=== PATIENT | female | born 1965 ===

== ENCOUNTER 2025-02-20 13:17 | Outpatient (CLI) | payer MEDICARE, MEDICAID, SELFPAY ==
--- OUTSIDE RECORDS SUMMARY | 2025-02-20 14:59 | XMS_ITS ---
Care Plan - [facility] Created on: February 20, 2025 ARGENIS MONTERO : 1965 Sex: Female Author Organization [facility] Address [address] [place] [address] Phone Care Team Providers Care Card Puncher Name Role Phone BEE TIRADO MD Primary Care Provider
--- OUTSIDE RECORDS SUMMARY | 2025-02-20 14:59 | XMS_ITS | Clinical Summary ---
Author Organization [facility] Address [address] [place] [id number] Care Team Providers Care Naval Gunfire Spotter Name Role Phone Chato Tomas MD Primary Care Provider [phone] Social History Tobacco Use Types Packs/Day Years Used Date Smoking Tobacco: Never Assessed Comments Unknown Sex and Gender Information Value Date Recorded Sex Assigned at Not on file Legal Sex Female 6:17 PM CDT Gender Identity Not on file Sexual Orientation Not on file Plan of Treatment Health Maintenance Due Date Last Done Comments Cervical Cancer Screening Pa p Smear (Age 30 to 64) Every 3 Years 1965 Colorectal Cancer Screening Colonoscopy (10 Years) 1965 Annual Physical 1970 Hepatitis C 1985 DTaP, Tdap and Td Vaccines ( 1 - Tdap) 1986 Hepatitis B Vaccines (1 of 3 - 19+ 3-dose series) 1986 Cervical Cancer Screening Pa p with HPV Testing (Age 30 to 64) Every 5 Years 1997 Cervical Cancer Screening with HPV 1997 Mammogram Screening 2007 Pneumococcal Vaccine: 50+ Ye ars (1 of 1 - PCV) 2017 Zoster Vaccines (1 of 2) 2017 COVID-19 Vaccine (2023-2 5 season) 2024 Meningococcal B Vaccine Aged Out No l onger eligible based on patient's age to complete this topic Meningococcal Vaccine Aged Out No kenan lea eligible based on patient's age to complete this topic RSV Immunizations Under 20 Months Aged Out No longer eligible based on patient's age to complete this topic Insurance [facility] MEDICAID Care Teams Naval Gunfire Spotter Relationship Specialty Start Date End Date Chato Tomas MD [address] [place] [id number] PCP - General FAMILY PRACTICE 10/07/23
--- OUTSIDE RECORDS SUMMARY | 2025-02-20 14:59 | XMS_ITS | Clinical Summary ---
Author Organization [facility] Address [address] [place] [address] Phone Care Team Providers Care Risk Management Consultant Name Role Phone BEE TIRADO MD Primary Care Provider [phone] Reason for Visit and Chief Complaint The Chief Complaint is: WANTS TO DISCUSS NEW SHOES Plan of Treatment Diabetic education and instructions have been provided. We reviewed and discussed the following: - Risk categories related to pts with diabetes and foot or lower extremity complications per ADA. Adherence to medication regimen and close monitoring or blood sugar control. Daily monitoring/inspection of feet and shoes. Proper management of diet and weight Regular follow up with PCP and specialty providers as recommended Lower extremity complications related to DM were reviewed and stressed prevention. - Patient was educated on high pressure areas including risks and offloading solutions. - Reviewed with patient proper foot care instructions and daily self-examination and monitoring of the feet. - Patient was instructed to check feet daily for blisters, cuts, red spots, and swelling. - Patient instructed to use a mirror to check bottom of feet or ask a family member for help if unable check bottom of feet themselves. - Patient instructed to wash feet in warm not hot water daily. - Patient instructed to dry feet well especially between toes. - Patient instructed to apply cream on top and bottom of feet, but not in between toes. - Patient instructed to smooth corns and calluses gently with pumice stone - Patient instructed to wear shoes and socks at all times, never go barefoot. - Wear comfortable shoes that fit well and protect feet. - Patient instructed to check shoes before putting them on and taking them off each time to make sure the lining is smooth and there are no objects inside or stuck in sole. - Check socks for drainage or blood when taking them off. - Patient instructed to wear socks at night if feet get cold. - Patient instructed to elevate feet while sitting to improve blood flow. - Advised against smoking, and drinking alcohol in excess. - Patient advised to remain as active as possible and work with PCP to keep blood sugar in a safe range. - Patient counseled that they may not feel pain or injury due to loss of sensation and advised to call us right away if a cut, sore, blister, or bruise on foot does not begin to heal after one day. Patient was educated about the systemic risks of diabetes and importance of proper glucose control, dangers of neuropathy and loss of gift of pain and risk stratification and exam frequency. - Patient was educated on HgbA1c. - Rx deep wide toe box shoes with heat molded inserts to accommodate structural pathology - Pt was encouraged to call with any questions or concerns. All questions answered at today's visit. RTC in 3 Months ONYCHOMYCOSIS (FUNGUS NAIL) Clinic evidence of mycosis of the nail Positive culture complete on: Medical Evidence Documenting Podiatric Care Limitation of ambulation requiring active treatment of the foot, ambulatory patient. Non-ambulatory patient with diagnoses likely to result in significant medical complication in the absence of such treatment. Non-ambulatory patient requiring active treatment of the foot to prevent complications. 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 Absent posterior tibial (ankle) pulse 2. Advanced trophic changes: {Indicate three (minimum) trophic changes from this list} Hair growth (decrease) Nail changes (thickening) Pigmentary changes (discoloration) Skin color (rubor or redness) Skin texture (thin, shiny) 3. Absent dorsalis pedis (foot) pulse (pedal pulses) left CLASS C FINDINGS/Q9: (minimum of 2) Burning Claudication Edema Paresthesia (numbness, tingling) Temperature changes (cold feet) - Last Documented On 02/14/2024 7:56AM ; [facility] Recommended that patient proceed with custom shoes and inserts to help with a more neutral position. We may need to consider a brace however I like to start with custom shoes and inserts at this time. We discussed potential for need of walker. Patient is seeing her primary care doctor tomorrow and have asked him to discuss that with her primary care doctor. Patient will return to clinic for at risk footcare in approximately 10 weeks - Last Documented On 02/14/2024 7:56AM ; [facility] Instructions to patient Intervention and counseling on cessation of tobacco use Last Documented On 2:29PM ; [facility] Assessments Includes: Assessments from this encounter Findings - [I89.0 - Lymphedema, not elsewhere classified] Lymphedema of both lower extremities - Last Documented On 02/14/2024 7:56AM ; [facility] - [B35.1 - Tinea unguium] Onychomycosis of the toenails - Last Documented On 02/14/2024 7:56AM ; [facility] - [L84 - Corns and callosities] Foot callus - Last Documented On 02/14/2024 7:56AM ; [facility] - [M21.6X9 - Other acquired deformities of unspecified foot] Pes cavovarus - Last Documented On 02/14/2024 7:56AM ; [facility] - [M20.40 - Other hammer toe(s) (acquired), unspecified foot] Acquired hammer toes of both feet - Last Documented On 02/14/2024 7:56AM ; [facility] - [G62.89 - Other specified polyneuropathies] Distal symmetric polyneuropathy - Last Documented On 02/14/2024 7:56AM ; [facility] Instructions Includes: Instructions from this encounter Instructions to patient Intervention and counseling on cessation of tobacco use Last Documented On 2:29PM ; [facility] Medical Equipment - Implanted Devices Includes: Current Devices No Medical Equipment Recorded Medications Includes: Medications discussed during this encounter and other current Medications Current Medications (continue as prescribed) SB Bacitracin 500 UNIT/GM External Ointment 08/24/2023 Provider: Diagnosis: Last Documented On 08/24/2023 9:55AM By Bossman RUGGIERO ; [facility] Banophen 25 MG Oral Capsule 08/24/2023 Provider: Diagnosis: Last Documented On 08/24/2023 9:55AM By Bossman RUGGIERO ; [facility] Calcipotriene 0.005% External Cream 08/24/2023 Provi giancarlo: Diagnosis: Last Documented On 08/24/2023 9:56AM By Bossman RUGGIERO ; [facility] Allergy Relief (Cetirizine) 10 MG Oral Tablet 08/24/20 Provider: Diagnosis: Last Documented On 08/24/2023 9:56AM By Bossman RUGGIERO ; [facility] Clobetasol Propionate 0.05% External Cream 08/24/2023 Provider: Diagnosis: Last Documented On 08/24/2023 9:57AM By Bossman RUGGIERO ; [facility] Crestor 10 MG Oral Tablet 08/24/2023 Provider: Diagnosis: Last Documented On 08/24/2023 9:57AM By Bossman RUGGIERO ; [facility] Fish Oil 1000 MG Oral Capsule 08/24/2023 Provide r: Diagnosis: Last Documented On 08/24/2023 9:57AM By Bossman RUGGIERO ; [facility] Furosemide 20 MG Oral Tablet 08/24/2023 Provider: Diagnosis: Last Documented On 08/24/2023 9:57AM By Bossman RUGGIERO ; [facility] Curad Hydrocortisone 1% External Cream 08/24/2023 Pr ovider: Diagnosis: Last Documented On 08/24/2023 9:58AM By Bossman RUGGIERO ; [facility] hydrOXYzine HCl 25 MG Oral Tablet 08/24/2023 Provide r: Diagnosis: Last Documented On 08/24/2023 9:58AM By Bossman RUGGIERO ; [facility] Levothyroxine Sodium 50 MCG Oral Tablet 08/24/2023 P rovider: Diagnosis: Last Documented On 08/24/2023 9:59AM By Bossman RUGGIERO ; [facility] Robafen DM Cough 10-100 MG/5ML Oral Liquid 08/24/2023 Provider: Diagnosis: Last Documented On 08/24/2023 10:00AM By Bossman RUGGIERO ; [facility] Acetaminophen 325 MG Oral Capsule 08/24/2023 Provide r: Diagnosis: Last Documented On 08/24/2023 9:54AM By Bossman RUGGIERO ; [facility] Past Medications on file Amoxicillin 500 MG Oral Capsule 04/03/2024 - 04/13/2024 Provider: VOLODYMYR HUERTA Diagnosis: 1 CAPSULE TWO TIMES A DAY Last Documented On 04/03/2024 11:42AM By Volodymyr ALMANZA ; [facility] Medications Administered Includes: Administered Medications from this encounter No Administered Medications Recorded Vital Signs Includes: Vital Signs from this encounter Vital Name 02/07/2024 02:29P Blood Pressure Sitting L 152/88 BP Cuff Size Regular Pulse Rate-Sitting (bpm) 76 Respiration Rate (breaths/min) 21 Weight (lb) 255 Oxygen Saturation (%) 94 Last Documented: On 02/07/2024 2:30PM ; [facility] Results Includes: Results discussed during this encounter No Results Recorded For Specified Dates History of Present Illness Includes: History of Present Illness from this encounter KIKO MONTERO is a 58 year old female. - Allergy list reviewed - Problem list reviewed - Medication reconciliation performed - Medication list reviewed Patient is a pleasant 58 year old female here today from long-term with a manager family.Central Supply Nurse reports that she is wearing down the outsides of her shoes within a month to 2 months. They are wondering if a brace would be more helpful. Patient reports that she is unsteady on her feet and caregiver does confirm this. She currently does not use a walker but does use a cane that is pretty worn out. Social History Description Last Updated Tobacco non-user 08/24/2023 Last Documented On 4 2:28PM ; [facility] Smoking Status Unknown Procedures and Surgical History Includes: Procedures from this encounter Procedures Code Diagnosis Performing Provider Service L ocation Service Date intervention and counseling on cessation of tobacco use 4000F Last Documented On 4 2:29PM ; [facility] use of tobacco assessment performed 1000F Last Documented On 4 2:29PM ; [facility] review of medications documented 1160F Last Documented On 4 7:55AM ; [facility] encouragement to exercise Last Documented On 4 7:55AM ; [facility] Clinical summary provided to patient Last Documented On 7:55AM ; [facility] Medical History Includes: Medical History addressed during this encounter No Medical History Recorded Family History Includes: Family History addressed during this encounter No Family History Recorded Review of Systems Includes: Review of Systems from this encounter No Review of Systems Recorded Mental Status Includes: Mental Status from this encounter No Mental Status Recorded Functional Status Includes: Functional Status from this encounter No Functional Status Recorded Physical Exam Includes: Physical Exam from this encounter Allergies Includes: Active Allergies No Known Allergies Encounters Encounter Provider Location Date Check-In Time Check-Out Time Diagnosis CHECK UP NIIMSHA FRANKLIN DPM [facility] 02/07/20 24 2:11PM 2:37PM Dermatophytosis Onychomycosis Toenails,Polyneuro marbella Distal Symmetric,Acquired Deformity of Toe - Hammer Toe Bilateral,Callus Foot,Lymphedema Lower Extremity Both,Acquired Deformity of Foot Cavovarus Insurance Includes: Active Insurance Policies Plan Name Member ID Group # Subscriber Relationship Effect ajay Dates 1 - [facility]/MEDICARE ADV/AARP [id number] ARGENIS MONTERO Self 2 - MEDICAID OF [place] MEDICARE SECOND [id number] ARGENIS MONTERO Self Clinical Notes Includes: Clinical Notes from this encounter * Progress note Date Encounter Last Documented by 02/07/2024 CHECK UP Last documented on 02/14/2024; 7:56 AM, NIMISHA FRANKLIN DPM; [facility] Chief Complaint The Chief Complaint is: WANTS TO DISCUSS NEW SHOES. History of Present Illness ARGENIS MONTERO is a 58 year old female. - Allergy list reviewed - Problem list reviewed - Medication reconciliation performed - Medication list reviewed Patient is a pleasant 58 year old female here today from long-term with a manager family.Central Supply Nurse reports that she is wearing down the outsides of her shoes within a month to 2 months. They are wondering if a brace would be more helpful. Patient reports that she is unsteady on her feet and caregiver does confirm this. She currently does not use a walker but does use a cane that is pretty worn out. Current Medication - Acetaminophen 325 MG Oral Capsule 0 days, 0 refills - Allergy Relief (Cetirizine) 10 MG Oral Tablet 0 days, 0 refills - Banophen 25 MG Oral Capsule 0 days, 0 refills - Calcipotriene 0.005% External Cream 0 days, 0 refills - Clobetasol Propionate 0.05% External Cream 0 days, 0 refills - Crestor 10 MG Oral Tablet 0 days, 0 refills - Curad Hydrocortisone 1% External Cream 0 days, 0 refills - [facility] Fish Oil 1000 MG Oral Capsule 0 days, 0 refills - Furosemide 20 MG Oral Tablet 0 days, 0 refills - hydrOXYzine HCl 25 MG Oral Tablet 0 days, 0 refills - Levothyroxine Sodium 50 MCG Oral Tablet 0 days, 0 refills - Robafen DM Cough 10-100 MG/5ML Oral Liquid 0 days, 0 refills - SB Bacitracin 500 UNIT/GM External Ointment 0 days, 0 refills Social History Tobacco use: Tobacco non-user. Allergies - No Known Allergies Physical Findings - Vitals taken 02/07/2024 02:29 pm BP-Sitting L 152/88 mmHg BP Cuff Size Regular Pulse Rate-Sitting 76 bpm Respiration Rate 21 per min Weight 255 lbs Oxygen Saturation 94 % Cardiovascular: DP pulse is palpable left and palpable right. PT pulse is non palpable left and right. Capillary refill is < 3 left and right. Edema +1 bilateral foot. Varicosities present legs Temperature warm proximally to cold distally bilateral Hemosiderin deposits absent bilateral Dermatalogic: The patient's nails appear incurvated, thickened, elongated, dystrophic, discolored with subungual debris 1-5 right, 1-5 left nails. Digital hair growth is absent left and right. Skin is of thin, shiny, flaking texture and poor turgor. HPK bilateral distal tip 2nd digit Neurological: Vibratory (128-Hz tuning fork) sensation is absent to right and left. Monofilament (10-g) sensation is 0/10 to right and left. Parasthesias present Musculoskeletal: Muscle Strength is +4/5 to all compartments of bilateral lower extremity. Bunions Deformity absent Hammer digit deformity bilaterally present Cavovarus foot deformity to saurav foot Gait: Angle of gait is wide abduction. Base is wide. Assessment - [I89.0 - Lymphedema, not elsewhere classified] Lymphedema of both lower extremities - [B35.1 - Tinea unguium] Onychomycosis of the toenails - [L84 - Corns and callosities] Foot callus - [M21.6X9 - Other acquired deformities of unspecified foot] Pes cavovarus - [M20.40 - Other hammer toe(s) (acquired), unspecified foot] Acquired hammer toes of both feet - [G62.89 - Other specified polyneuropathies] Distal symmetric polyneuropathy Therapy - Encouragement to exercise. - Intervention and counseling on cessation of tobacco use. - Clinical summary provided to patient. Plan Diabetic education and instructions have been provided. We reviewed and discussed the following: - Risk categories related to pts with diabetes and foot or lower extremity complications per ADA. Adherence to medication regimen and close monitoring or blood sugar control. Daily monitoring/inspection of feet and shoes. Proper management of diet and weight Regular follow up with PCP and specialty providers as recommended Lower extremity complications related to DM were reviewed and stressed prevention. - Patient was educated on high pressure areas including risks and offloading solutions. - Reviewed with patient proper foot care instructions and daily self-examination and monitoring of the feet. - Patient was instructed to check feet daily for blisters, cuts, red spots, and swelling. - Patient instructed to use a mirror to check bottom of feet or ask a family member for help if unable check bottom of feet themselves. - Patient instructed to wash feet in warm not hot water daily. - Patient instructed to dry feet well especially between toes. - Patient instructed to apply cream on top and bottom of feet, but not in between toes. - Patient instructed to smooth corns and calluses gently with pumice stone - Patient instructed to wear shoes and socks at all times, never go barefoot. - Wear comfortable shoes that fit well and protect feet. - Patient instructed to check shoes before putting them on and taking them off each time to make sure the lining is smooth and there are no objects inside or stuck in sole. - Check socks for drainage or blood when taking them off. - Patient instructed to wear socks at night if feet get cold. - Patient instructed to elevate feet while sitting to improve blood flow. - Advised against smoking, and drinking alcohol in excess. - Patient advised to remain as active as possible and work with PCP to keep blood sugar in a safe range. - Patient counseled that they may not feel pain or injury due to loss of sensation and advised to call us right away if a cut, sore, blister, or bruise on foot does not begin to heal after one day. Patient was educated about the systemic risks of diabetes and importance of proper glucose control, dangers of neuropathy and loss of gift of pain and risk stratification and exam frequency. - Patient was educated on HgbA1c. - Rx deep wide toe box shoes with heat molded inserts to accommodate structural pathology - Pt was encouraged to call with any questions or concerns. All questions answered at today's visit. RTC in 3 Months ONYCHOMYCOSIS (FUNGUS NAIL) Clinic evidence of mycosis of the nail Positive culture complete on: Medical Evidence Documenting Podiatric Care Limitation of ambulation requiring active treatment of the foot, ambulatory patient. Non-ambulatory patient with diagnoses likely to result in significant medical complication in the absence of such treatment. Non-ambulatory patient requiring active treatment of the foot to prevent complications. 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 Absent posterior tibial (ankle) pulse 2. Advanced trophic changes: {Indicate three (minimum) trophic changes from this list} Hair growth (decrease) Nail changes (thickening) Pigmentary changes (discoloration) Skin color (rubor or redness) Skin texture (thin, shiny) 3. Absent dorsalis pedis (foot) pulse (pedal pulses) left CLASS C FINDINGS/Q9: (minimum of 2) Burning Claudication Edema Paresthesia (numbness, tingling) Temperature changes (cold feet) Recommended that patient proceed with custom shoes and inserts to help with a more neutral position. We may need to consider a brace however I like to start with custom shoes and inserts at this time. We discussed potential for need of walker. Patient is seeing her primary care doctor tomorrow and have asked him to discuss that with her primary care doctor. Patient will return to clinic for at risk footcare in approximately 10 weeks Practice Management Use of tobacco assessment performed Review of medications documented. Health Reminders - Assess Need for CT Lung Screen satisfied 02/07/2024. - Assess Tobacco Use satisfied 02/07/2024.
--- OUTSIDE RECORDS SUMMARY | 2025-02-20 14:59 | XMS_ITS | Clinical Summary ---
Author Organization [facility] Address [address] [place] [address] Phone Care Team Providers Care Counter Manager Name Role Phone BEE TIRADO MD Primary Care Provider [phone] Reason for Visit and Chief Complaint The Chief Complaint is: TOENAIL TRIM Plan of Treatment Evaluated the patient. Discussed treatment options with the patient. Discussed with patient proper care and hygeine for their feet. Patient tolerated procedures well without incident. Procedure: (21759 Debridement of toenails 6-10) Surgically debrided and mechanically reduced 6 or more toenails specifically nails 1-5 left and 1-5 right. Hemmorhage occurred none. . - Last Documented On 02/10/2024 10:07AM ; [facility] Diabetic education and instructions have been provided. [...] changes (cold feet) - Last Documented On 02/10/2024 10:07AM ; [facility] Patient is to get Comperflex to help control her Lymphedma as she is having difficulty putting on regular compression stockings due to mobility issues, swelling, and learning disabilities. - Last Documented On 02/10/2024 10:07AM ; [facility] Instructions to patient Intervention and counseling on cessation of tobacco use Last Documented On 9:11AM ; [facility] Assessments Includes: Assessments from this encounter Findings - [I89.0 - Lymphedema, not elsewhere classified] Lymphedema of both lower extremities - Last Documented On 02/10/2024 10:07AM ; [facility] - [B35.1 - Tinea unguium] Onychomycosis of the toenails - Last Documented On 02/10/2024 10:07AM ; [facility] - [L84 - Corns and callosities] Foot callus - Last Documented On 02/10/2024 10:07AM ; [facility] - [M20.40 - Other hammer toe(s) (acquired), unspecified foot] Acquired hammer toes of both feet - Last Documented On 02/10/2024 10:07AM ; [facility] - [G62.89 - Other specified polyneuropathies] Distal symmetric polyneuropathy - Last Documented On 02/10/2024 10:07AM ; [facility] - [M79.676 - Pain in unspecified toe(s)] Pain in toe - Last Documented On 02/10/2024 10:07AM ; [facility] Instructions Includes: Instructions from this encounter Instructions to patient Intervention and counseling on cessation of tobacco use Last Documented On 9:11AM ; [facility] Medical Equipment - Implanted Devices Includes: Current Devices No Medical Equipment Recorded Medications Includes: Medications discussed during this encounter and other current Medications Current Medications (continue as prescribed) SB Bacitracin 500 UNIT/GM External Ointment 08/24/2023 Provider: Diagnosis: Last Documented On 08/24/2023 9:55AM By Bossman RUGGIERO ; [facility] Banophen 25 MG Oral Capsule 08/24/2023 Provider: Diagnosis: Last Documented On 08/24/2023 9:55AM By Bossman RUGGIERO ; [facility] Calcipotriene 0.005% External Cream 08/24/2023 Provi giancarlo: Diagnosis: Last Documented On 08/24/2023 9:56AM By Bossman RUGGIERO ; [facility] Allergy Relief (Cetirizine) 10 MG Oral Tablet 08/24/20 Provider: Diagnosis: Last Documented On 08/24/2023 9:56AM By Bossman RUGGIERO ; [facility] Clobetasol Propionate 0.05% External Cream 08/24/2023 Provider: Diagnosis: Last Documented On 08/24/2023 9:57AM By Bossman RUGGIERO ; [facility] Crestor 10 MG Oral Tablet 08/24/2023 Provider: Diagnosis: Last Documented On 08/24/2023 9:57AM By Bossman RUGGIERO ; [facility] Fish Oil 1000 MG Oral Capsule 08/24/2023 Provide r: Diagnosis: Last Documented On 08/24/2023 9:57AM By Bossman RUGGIERO ; [facility] Furosemide 20 MG Oral Tablet 08/24/2023 Provider: Diagnosis: Last Documented On 08/24/2023 9:57AM By Bossman RUGGIERO ; [facility] Curad Hydrocortisone 1% External Cream 08/24/2023 Pr ovider: Diagnosis: Last Documented On 08/24/2023 9:58AM By Bossman RUGGIERO ; [facility] hydrOXYzine HCl 25 MG Oral Tablet 08/24/2023 Provide r: Diagnosis: Last Documented On 08/24/2023 9:58AM By Bossman RUGGIERO ; [facility] Levothyroxine Sodium 50 MCG Oral Tablet 08/24/2023 P rovider: Diagnosis: Last Documented On 08/24/2023 9:59AM By Bossman RUGGIERO ; [facility] Robafen DM Cough 10-100 MG/5ML Oral Liquid 08/24/2023 Provider: Diagnosis: Last Documented On 08/24/2023 10:00AM By Bossman RUGGIERO ; [facility] Acetaminophen 325 MG Oral Capsule 08/24/2023 Provide r: Diagnosis: Last Documented On 08/24/2023 9:54AM By Bossman RUGGIERO ; [facility] Past Medications on file Amoxicillin 500 MG Oral Capsule 04/03/2024 - 04/13/2024 Provider: VOLODYMYR HUERTA Diagnosis: 1 CAPSULE TWO TIMES A DAY Last Documented On 04/03/2024 11:42AM By Volodymyr ALMANZA ; [facility] Medications Administered Includes: Administered Medications from this encounter No Administered Medications Recorded Vital Signs Includes: Vital Signs from this encounter Vital Name 02/10/2024 09:12A Blood Pressure Sitting L 158/86 BP Cuff Size Large Pulse Rate-Sitting (bpm) 111 Respiration Rate (breaths/min) 21 Weight (lb) 255 Oxygen Saturation (%) 98 Last Documented: On 02/10/2024 9:12AM ; [facility] Results Includes: Results discussed during this encounter No Results Recorded For Specified Dates History of Present Illness Includes: History of Present Illness from this encounter KIKO MONTERO is a 58 year old female. - Allergy list reviewed - Problem list reviewed - Medication reconciliation performed - Medication list reviewed Patient is a pleasant 58 year old female here today from [facility] with a cutter finisher for [facility] Patient is developmentally disabled and had previously always lived with her mother. She came to the [facility] about four month ago. Patient states that her nails are uncomfortable and they are too thick for her to cut. Social History Description Last Updated Tobacco non-user 08/24/2023 Last Documented On 4 9:10AM ; [facility] Smoking Status Unknown Procedures and Surgical History Includes: Procedures from this encounter Procedures Code Diagnosis Performing Provider Service L ocation Service Date intervention and counseling on cessation of tobacco use 4000F Last Documented On 4 9:11AM ; [facility] use of tobacco assessment performed 1000F Last Documented On 4 9:11AM ; [facility] review of medications documented 1160F Last Documented On 4 10:05AM ; [facility] encouragement to exercise Last Documented On 4 10:05AM ; [facility] Clinical summary provided to patient Last Documented On 4 10:05AM ; [facility] Medical History Includes: Medical History addressed during [...] Check-In Time Check-Out Time Diagnosis CHECK UP JOHN Griffith [facility] 02/10/20 24 9:00AM 9:48AM Dermatophytosis Onychomycosis Toenails,Polyneuro marbella Distal Symmetric,Acquired Deformity of Toe - Hammer Toe Bilateral,Callus Foot,Lymphedema Lower Extremity Both,Limb Pain Toe Insurance Includes: Active Insurance Policies Plan Name Member ID Group # Subscriber Relationship Effect ajay Dates 1 - [facility]/MEDICARE ADV/AARP [id number] ARGENIS MONETRO Self 2 - MED[place] MEDICARE SECOND [id number] ARGENIS MONTERO Self Clinical Notes Includes: Clinical Notes from this encounter * Progress note Date Encounter Last Documented by 02/10/2024 CHECK UP Last documented on 02/10/2024; 10:07 AM, JOHN Griffith; [facility] Chief Complaint The Chief Complaint is: TOENAIL TRIM. History of Present Illness ARGENIS MONTERO is a 58 year old female. - Allergy list reviewed - Problem list reviewed - Medication reconciliation performed - Medication list reviewed Patient is a pleasant 58 year old female here today from [facility] with a cutter finisher for [facility] Patient is developmentally disabled and had previously always lived with her mother. She came to the [facility] about four month ago. Patient states that her nails are uncomfortable and they are too thick for her to cut. Current Medication - Acetaminophen 325 MG Oral [...] Known Allergies Physical Findings - Vitals taken 02/10/2024 09:12 am BP-Sitting L 158/86 mmHg BP Cuff Size Large Pulse Rate-Sitting 111 bpm Respiration Rate 21 per min Weight 255 lbs Oxygen Saturation 98 % Cardiovascular: DP pulse is palpable left [...] Deformity absent Hammer digit deformity bilaterally present Gait: Angle of gait is wide abduction. Base is wide. Assessment - [I89.0 - Lymphedema, not elsewhere classified] Lymphedema of both lower extremities - [B35.1 - Tinea unguium] Onychomycosis of the toenails - [L84 - Corns and callosities] Foot callus - [M20.40 - Other hammer toe(s) (acquired), unspecified foot] Acquired hammer toes of both feet - [G62.89 - Other specified polyneuropathies] Distal symmetric polyneuropathy - [M79.676 - Pain in unspecified toe(s)] Pain in toe Therapy - Encouragement to exercise. - Intervention and counseling on cessation of tobacco use. - Clinical summary provided to patient. Plan Evaluated the patient. Discussed treatment options with the patient. Discussed with patient proper care and hygeine for their feet. Patient tolerated procedures well without incident. Procedure: (32600 Debridement of toenails 6-10) Surgically debrided and mechanically reduced 6 or more toenails specifically nails 1-5 left and 1-5 right. Hemmorhage occurred none. . Diabetic education and instructions have been provided. [...] Paresthesia (numbness, tingling) Temperature changes (cold feet) Patient is to get Comperflex to help control her Lymphedma as she is having difficulty putting on regular compression stockings due to mobility issues, swelling, and learning disabilities. Practice Management Use of tobacco assessment performed Review of medications documented. Health Reminders - Assess Need for CT Lung Screen satisfied 02/10/2024. - Assess Tobacco Use satisfied 02/10/2024.
--- OUTSIDE RECORDS SUMMARY | 2025-02-20 14:59 | XMS_ITS | Clinical Summary ---
Author Organization [facility] Address [address] [place] [address] Phone Care Team Providers Care Professor Of Special Education Name Role Phone BEE TIRADO MD Primary Care Provider Reason for Visit and Chief Complaint CHECK UP Plan of Treatment No Plan of Treatment Recorded Assessments Includes: Assessments from this encounter No Assessments Recorded Medical Equipment - Implanted Devices Includes: Current Devices No Medical Equipment Recorded Medications Includes: Medications discussed during this encounter and other current Medications Current Medications (continue as prescribed) SB Bacitracin 500 UNIT/GM External Ointment 08/24/2023 Provider: Diagnosis: Last Documented On 08/24/2023 9:55AM By Bossman RUGGIERO ; [facility] Banophen 25 MG Oral Capsule 08/24/2023 Provider: Diagnosis: Last Documented On 08/24/2023 9:55AM By Bossman RUGGIERO ; [facility] Calcipotriene 0.005% External Cream 08/24/2023 Provi giancarlo: Diagnosis: Last Documented On 08/24/2023 9:56AM By Bossman RUGGIERO ; [facility] Allergy Relief (Cetirizine) 10 MG Oral Tablet 08/24/20 Provider: Diagnosis: Last Documented On 08/24/2023 9:56AM By Bossman RUGGIERO ; [facility] Clobetasol Propionate 0.05% External Cream 08/24/2023 Provider: Diagnosis: Last Documented On 08/24/2023 9:57AM By Bossman RUGGIERO ; [facility] Crestor 10 MG Oral Tablet 08/24/2023 Provider: Diagnosis: Last Documented On 08/24/2023 9:57AM By Bossman RUGGIERO ; [facility] Fish Oil 1000 MG Oral Capsule 08/24/2023 Provide r: Diagnosis: Last Documented On 08/24/2023 9:57AM By Bossman RUGGIERO ; [facility] Furosemide 20 MG Oral Tablet 08/24/2023 Provider: Diagnosis: Last Documented On 08/24/2023 9:57AM By Bossman RUGGIERO ; [facility] Curad Hydrocortisone 1% External Cream 08/24/2023 Pr ovider: Diagnosis: Last Documented On 08/24/2023 9:58AM By Bossman RUGGIERO ; [facility] hydrOXYzine HCl 25 MG Oral Tablet 08/24/2023 Provide r: Diagnosis: Last Documented On 08/24/2023 9:58AM By Bossman RUGGIERO ; [facility] Levothyroxine Sodium 50 MCG Oral Tablet 08/24/2023 P rovider: Diagnosis: Last Documented On 08/24/2023 9:59AM By Bossman RUGGIERO ; [facility] Robafen DM Cough 10-100 MG/5ML Oral Liquid 08/24/2023 Provider: Diagnosis: Last Documented On 08/24/2023 10:00AM By Bossman RUGGIERO ; [facility] Acetaminophen 325 MG Oral Capsule 08/24/2023 Provide r: Diagnosis: Last Documented On 08/24/2023 9:54AM By Bossman RUGGIERO ; [facility] Medications Administered Includes: Administered Medications from this encounter No Administered Medications Recorded Results Includes: Results discussed during this encounter No Results Recorded For Specified Dates History of Present Illness Includes: History of Present Illness from this encounter No History of Present Illness Recorded Social History No Social History Recorded - Smoking Status Unknown Medical History Includes: Medical History addressed during [...] Exam Includes: Physical Exam from this encounter No Physical Exam Recorded Allergies Includes: Active Allergies No Known Allergies Insurance Includes: Active Insurance Policies Plan Name Member ID Group # Subscriber Relationship Effect ajay Dates 1 - [facility]/MEDICARE ADV/AARP [id number] ARGENIS MONTERO Self 2 - MED[place] [place] MEDICARE SECOND [id number] ARGENIS MONTERO Self Clinical Notes Includes: Clinical Notes from this encounter No Clinical Notes Recorded
--- OUTSIDE RECORDS SUMMARY | 2025-02-20 14:59 | XMS_ITS | Clinical Summary ---
Author Organization [facility] Address [address] [place] [address] Phone Care Team Providers Care Rip Saw Operator Name Role Phone BEE TIRADO MD Primary [...] On 08/24/2023 9:55AM By Bossman RUGGIERO ; [facility] Banophen 25 MG Oral Capsule 08/24/2023 Provider: Diagnosis: Last Documented On 08/24/2023 9:55AM By Bossman RUGGIERO ; [facility] Calcipotriene 0.005% External Cream 08/24/2023 Provi giancarlo: Diagnosis: Last Documented On 08/24/2023 9:56AM By Bossman RUGGIERO ; [facility] Allergy Relief (Cetirizine) 10 MG Oral Tablet 08/24/20 Provider: Diagnosis: Last Documented On 08/24/2023 9:56AM By Bossman RUGGIERO ; [facility] Clobetasol Propionate 0.05% External Cream 08/24/2023 Provider: Diagnosis: Last Documented On 08/24/2023 9:57AM By Bossman RUGGIERO ; [facility] Crestor 10 MG Oral Tablet 08/24/2023 Provider: Diagnosis: Last Documented On 08/24/2023 9:57AM By Bossman RUGGIERO ; [facility] Fish Oil 1000 MG Oral Capsule 08/24/2023 Provide r: Diagnosis: Last Documented On 08/24/2023 9:57AM By Bossman RUGGIERO ; [facility] Furosemide 20 MG Oral Tablet 08/24/2023 Provider: Diagnosis: Last Documented On 08/24/2023 9:57AM By Bossman RUGGIERO ; [facility] Curad Hydrocortisone 1% External Cream 08/24/2023 Pr ovider: Diagnosis: Last Documented On 08/24/2023 9:58AM By Bossman RUGGIERO ; [facility] hydrOXYzine HCl 25 MG Oral Tablet 08/24/2023 Provide r: Diagnosis: Last Documented On 08/24/2023 9:58AM By oBssman RUGGIERO ; [facility] Levothyroxine Sodium 50 MCG Oral Tablet 08/24/2023 P rovider: Diagnosis: Last Documented On 08/24/2023 9:59AM By Bossman RUGGIERO ; [facility] Robafen DM Cough 10-100 MG/5ML Oral Liquid 08/24/2023 Provider: Diagnosis: Last Documented On 08/24/2023 10:00AM By Bossman RUGGIERO ; [facility] Acetaminophen 325 MG Oral Capsule 08/24/2023 Provide r: Diagnosis: Last Documented On 08/24/2023 9:54AM By Bossman RUGGIERO ; [facility] Medications Administered Includes: [...] Subscriber Relationship Effect ajay Dates 1 - [facility]/MEDICARE ADV/AARP [id number] ARGENIS MONTERO Self 2 - [employer] [place] MEDICARE SECOND [id number] ARGENIS MONTERO Self Clinical Notes Includes: Clinical Notes from this encounter No Clinical Notes Recorded
--- OUTSIDE RECORDS SUMMARY | 2025-02-20 14:59 | XMS_ITS ---
Author Organization [facility] Address [address] [place] [address] Phone Care Team Providers Care Public Relations Director Name Role Phone BEE TIRADO MD Primary Care Provider [phone] Plan of Treatment Findings Encounter Date Pt to use prescription as or dered. Purpose of and use of medication discussed. COVID SICK VISIT- ESTABLISHED PATIENT with ERIKAMADYSON [employer] 04/03/2024 Last Documented On 4 11:55AM ; [facility] Continue current medication COVID SICK V ISIT- ESTABLISHED PATIENT with ERIKA [employer] 04/03/2024 Last Documented On 4 11:55AM ; [facility] Evaluated the patient. Discu ssed treatment options with the patient. Discussed with patient proper care and hygeine for their feet. Patient tolerated procedures well without incident. Procedure: (20685 Debridement of toenails 6-10) Surgically debrided and mechanically reduced 6 or more toenails specifically nails 1-5 left and 1-5 right. Hemmorhage occurred none. CHECK UP with JOHN FISH [employer] C 02/10/2024 Last Documented On 4 10:07AM ; [facility] Evaluated the patient. Discu ssed treatment options with the patient. Discussed with patient proper care and hygeine for their feet. Patient tolerated procedures well without incident. Procedure: Surgically debrided and mechanically reduced 6 or more toenails specifically nails 1-5 left and 1-5 right. Hemmorhage occurred none. CHECK UP with JOHN [employer] C 11/30/2023 Last Documented On 4 1:53PM ; [facility] Procedure: (02451 Unna Boot Application) Pt was placed in Unna boot wrap to bilateral lower extremity. Unna boot consisted of one layer of Unna boot overlapped by 50%, followed by one layer of webril/cast padding, and one layer of coban at 50% stretch and 50% overlap with care taken to keep the leg at 90 degrees during application. CHECK UP with JOHN Charles JIMENEZIS [employer] C 11/30/2023 Last Documented On 4 1:53PM ; [facility] Instructions to patient Intervention and counseling on cessation of tobacco use Last Documented On 4 9:11AM ; [facility] Intervention and counseling on cessation of tobacco use Last Documented On 4 2:29PM ; [facility] Intervention and counseling on cessation of tobacco use Last Documented On 4 10:11AM ; [facility] Intervention and counseling on cessation of tobacco use Last Documented On 4 10:13AM ; [facility] Intervention and counseling on cessation of tobacco use Last Documented On 3 10:01AM ; [facility] Assessments Includes: Assessments for all patient encounters Findings Encounter Date Group A streptococcus: B hem olytic pharyngitis COVID SICK VISIT- ESTABLISHED PATIENT with ERIKAMADYSON [employer] 04/03/2024 Last Documented On 4 11:55AM ; [facility] [B35.1 - Tinea unguium] onyc homycosis of the toenails CHECK UP with JOHN JIMENEZIS [employer] C 02/10/2024 Last Documented On 4 10:07AM ; [facility] [I89.0 - Lymphedema, not els ewhere classified] lymphedema of both lower extremities CHECK UP with JOHN A ONTIS [employer] C 02/10/2024 Last Documented On 4 10:07AM ; [facility] [M20.40 - Other hammer toe(s ) (acquired), unspecified foot] acquired hammer toes of both feet CHECK UP with JOHN A [employer] C 02/10/2024 Last Documented On 4 10:07AM ; [facility] Distal symmetric polyneuropathy CHECK UP with MARC Soto [employer] C 02/10/2024 Last Documented On 4 10:07AM ; [facility] Foot callus CHECK UP with JOHN A ONTIS FN P C 02/10/2024 Last Documented On 4 10:07AM ; [facility] Pain in toe CHECK UP with JOHN A ONTIS FN P C 02/10/2024 Last Documented On 4 10:07AM ; [facility] [B35.1 - Tinea unguium] onyc homycosis of the toenails CHECK UP with NIMISHA FRANKLIN DPM 02/07/2024 Last Documented On 4 7:56AM ; [facility] [I89.0 - Lymphedema, not els ewhere classified] lymphedema of both lower extremities CHECK UP with NIMISHA Charles FRANKLIN DPM 02/07/2024 Last Documented On 4 7:56AM ; [facility] [M20.40 - Other hammer toe(s ) (acquired), unspecified foot] acquired hammer toes of both feet CHECK UP with NIMISHA Charles FRANKLIN DPM 02/07/2024 Last Documented On 4 7:56AM ; [facility] Distal symmetric polyneuropathy CHECK UP with OLEG FRANKLIN DPM 02/07/2024 Last Documented On 4 7:56AM ; [facility] Foot callus CHECK UP with NIMISHA A FRANKLIN DPM 02/07/2024 Last Documented On 4 7:56AM ; [facility] Pes cavovarus CHECK UP with NIMISHA A FRANKLIN DPM 02/07/2024 Last Documented On 4 7:56AM ; [facility] [B35.1 - Tinea unguium] onyc homycosis of the toenails CHECK UP with JOHN A TONYIS [employer] C 12/07/2023 Last Documented On 4 11:05AM ; [facility] [I89.0 - Lymphedema, not els ewhere classified] lymphedema of both lower extremities CHECK UP with JOHN A [employer] C 12/07/2023 Last Documented On 4 11:05AM ; [facility] Acquired hammer toes of both feet CHECK UP with JOHN A [employer] C 12/07/2023 Last Documented On 4 11:05AM ; [facility] Distal symmetric polyneuropathy CHECK UP with MA KULDIP A [employer] C 12/07/2023 Last Documented On 4 11:05AM ; [facility] Foot callus CHECK UP with JOHN A ONTIS FN P C 12/07/2023 Last Documented On 4 11:05AM ; [facility] [B35.1 - Tinea unguium] onyc homycosis of the toenails CHECK UP with JOHN A [employer] C 11/30/2023 Last Documented On 4 1:53PM ; [facility] [I89.0 - Lymphedema, not els ewhere classified] lymphedema of both lower extremities CHECK UP with JOHN A [employer] C 11/30/2023 Last Documented On 4 1:53PM ; [facility] Acquired hammer toes of both feet CHECK UP with JOHN A [employer] C 11/30/2023 Last Documented On 4 1:53PM ; [facility] Distal symmetric polyneuropathy CHECK UP with MA KULDIP A [employer] C 11/30/2023 Last Documented On 4 1:53PM ; [facility] Foot callus CHECK UP with JOHN A ONTIS FN P C 11/30/2023 Last Documented On 4 1:53PM ; [facility] [B35.1 - Tinea unguium] onyc homycosis of the toenails PODIATRY CONSULTATION- NEW PATIENT with JOHN A [employer] C 08/24/2023 Last Documented On 3 10:54AM ; [facility] Acquired hammer toes of both feet PODIAT RY CONSULTATION- NEW PATIENT with JOHN A [employer] C 08/24/2023 Last Documented On 3 10:54AM ; [facility] Distal symmetric polyneuropathy PODIATRY CONSULTATION- NEW PATIENT with JOHN A [employer] C 08/24/2023 Last Documented On 3 10:54AM ; [facility] Foot callus PODIATRY CONSULTATION- DEMETRIS MEJIA with JOHN Charles ALMANZA C 08/24/2023 Last Documented On 3 10:54AM ; [facility] Instructions Includes: Instructions for all patient encounters Instructions to patient Intervention and counseling on cessation of tobacco use Last Documented On 4 9:11AM ; [facility] Intervention and counseling on cessation of tobacco use Last Documented On 4 2:29PM ; [facility] Intervention and counseling on cessation of tobacco use Last Documented On 4 10:11AM ; [facility] Intervention and counseling on cessation of tobacco use Last Documented On 4 10:13AM ; [facility] Intervention and counseling on cessation of tobacco use Last Documented On 3 10:01AM ; [facility] Medical Equipment - Implanted Devices Includes: Current and historical Devices No Medical Equipment Recorded Medications Includes: Current and historical Medications Current Medications (continue as prescribed) SB Bacitracin 500 UNIT/GM External Ointment 08/24/2023 Provider: Diagnosis: Last Documented On 08/24/2023 9:55AM By Bossman RUGGIERO ; [facility] Banophen 25 MG Oral Capsule 08/24/2023 Provider: Diagnosis: Last Documented On 08/24/2023 9:55AM By Bossman RUGGIERO ; [facility] Calcipotriene 0.005% External Cream 08/24/2023 Provi giancarlo: Diagnosis: Last Documented On 08/24/2023 9:56AM By Bossman RUGGIERO ; [facility] Allergy Relief (Cetirizine) 10 MG Oral Tablet 08/24/20 Provider: Diagnosis: Last Documented On 08/24/2023 9:56AM By Bossman RUGGIEOR ; [facility] Clobetasol Propionate 0.05% External Cream 08/24/2023 Provider: Diagnosis: Last Documented On 08/24/2023 9:57AM By Bossman RUGGIERO ; [facility] Crestor 10 MG Oral Tablet 08/24/2023 Provider: Diagnosis: Last Documented On 08/24/2023 9:57AM By Bossman RUGGIERO ; [facility] Fish Oil 1000 MG Oral Capsule 08/24/2023 Provide r: Diagnosis: Last Documented On 08/24/2023 9:57AM By Bossman RUGGIERO ; [facility] Furosemide 20 MG Oral Tablet 08/24/2023 Provider: Diagnosis: Last Documented On 08/24/2023 9:57AM By Bossman RUGGIERO ; [facility] Curad Hydrocortisone 1% External Cream 08/24/2023 Pr ovider: Diagnosis: Last Documented On 08/24/2023 9:58AM By Bossman RUGIGERO ; [facility] hydrOXYzine HCl 25 MG Oral Tablet 08/24/2023 Provide r: Diagnosis: Last Documented On 08/24/2023 9:58AM By Bossman RUGGIERO ; [facility] Levothyroxine Sodium 50 MCG Oral Tablet 08/24/2023 P rovider: Diagnosis: Last Documented On 08/24/2023 9:59AM By Bossman RUGGIERO ; [facility] Robafen DM Cough 10-100 MG/5ML Oral Liquid 08/24/2023 Provider: Diagnosis: Last Documented On 08/24/2023 10:00AM By Bossman RUGGIERO ; [facility] Acetaminophen 325 MG Oral Capsule 08/24/2023 Provide r: Diagnosis: Last Documented On 08/24/2023 9:54AM By Bossman RUGGIERO ; [facility] Past Medications on file Amoxicillin 500 MG Oral Capsule 04/03/2024 - 04/13/2024 Provider: ERIKA HUERTA Diagnosis: 1 CAPSULE TWO TIMES A DAY Last Documented On 04/03/2024 11:42AM By Erika ALMANZA ; [facility] Medications Administered Includes: Administered Medications in patient's chart No Administered Medications Recorded Vital Signs Includes: Vital Signs from 02/21/2024 through 02/20/2025 Vital Name 04/03/2024 11:27A Pulse Rate-Sitting (bpm) 100 Respiration Rate (breaths/min) 22 Temp-Oral (F) 98 Weight (lb) 266 Oxygen Saturation (%) 95 Last Documented: On 04/03/2024 11:29A M ; [facility] Results Includes: Results from 02/21/2024 through 02/20/2025 Group A strep [facility] Ordered by ERIKA HUERTA on 12/2023 Collected: Reported: 04/03/2024 11:39 Last Documented On 4 11:39AM ; [facility] Reviewed on 04/03/2024; All test results are final unless otherwise noted. Rapid Strep positive A (Abnormal) Last Documented On 4 11:38AM ; [facility] LOT # AND EXP. DATE [id number] 09/02/26 N (Normal) Last Documented On 4 11:38AM ; [facility] INT. QC ACCEPTABLE? y N (Normal) Last Documented On 4 11:38AM ; [facility] History of Present Illness History of Present Illness not supported for this document type No History of Present Illness Recorded Social History Description Last Updated No tobacco use 04/03/2024 Last Documented On 4 11:55AM ; [facility] Not a job-related injury 08/24/2023 Last Documented On 3 10:54AM ; [facility] Tobacco non-user 08/24/2023 Last Documented On 3 10:54AM ; [facility] Smoking Status Unknown Procedures and Surgical History Includes: Procedures from 02/21/2024 through 02/20/2025 Procedures Code Diagnosis Performing Provider Service Location Service Date STREP TEST SCREENING (CLIA WAIVED) 84200 Streptococcal pharyngitis ERIKA HUERTA [facility] 04/03/2024 Last Documented On 4 10:56AM ; [facility] Medical History Includes: Medical History in patient's chart No Medical History Recorded Family History Includes: Family History in patient's chart No Family History Recorded Review of Systems Review of Systems not supported for this document type No Review of Systems Recorded Mental Status No Mental Status Recorded Functional Status No Functional Status Recorded Physical Exam Physical Exam not supported for this document type No Physical Exam Recorded Allergies Includes: Active, inactive, and resolved Allergies No Known Allergies Encounters Includes: Encounters from 02/21/2024 through 02/20/2025 Encounter Provider Location Date Check-In Time Check-Out Time Diagnosis COVID SICK VISIT- ESTABLISHED PATIENT [facility] 04/03/20 24 11:15AM 11:42AM Pharyngitis Streptococcus, Group A: Beta Hemolytic Insurance Includes: Active Insurance Policies Plan Name Member ID Group # Subscriber Relationship Effect ajay Dates 1 - [facility]/MEDICARE ADV/AARP [id number] CHRISTINA MONTERO Self 2 - [employer] OF [place] MEDICARE SECOND [id number] CHRISTINA MONTERO Self Clinical Notes Includes: Signed Clinical Notes starting from 11/20/2022 * Progress note Date Encounter Last Documented by 04/03/2024 COVID SICK VISIT- ESTABLISHED LISANDRO ONEAL Last documented on 04/03/2024; 11:55 AM, ERIKA ALMANZA-Nacho; [facility] Chief Complaint The Chief Complaint is: Starting Wednesday the caregivers where she lives noticed her having some nasal congestion/runny nose. There was a couple of residents who had strep last week so they wanted her to be tested. History of Present Illness CHRISTINA MONTERO is a 58 year old female. - Allergy list reviewed - Medication list reviewed - Feeling poorly (malaise) - No fever - No chills - No sinus pain - No swollen glands in the neck - Nasal discharge - Sore throat - No ear symptoms - No earache - No postnasal drip - No nasal passage blockage (stuffiness) - No chest pain or discomfort - No cough - Appetite not normal - No nausea - No vomiting - No abdominal pain Christina is a 58-year-old female patient that presented to the walk-in clinic with her caregiver for nasal drainage and fatigue. She has been exposed to strep throat by other residents, so staff is requesting strep testing. She has been taking benadryl and tylenol as needed for symptoms. Current Medication - Acetaminophen 325 MG Oral [...] days, 0 refills Social History Tobacco use: No tobacco use. Allergies - No Known Allergies Review Of Systems Systemic: No fever. Head: No headache. Otolaryngeal: No earache. Nasal discharge and sore throat. Cardiovascular: No chest pain or discomfort. Pulmonary: No cough and no wheezing. Gastrointestinal: No vomiting, no abdominal pain, and no diarrhea. Skin: No skin lesions. Physical Findings - Vitals taken 04/03/2024 11:27 am Pulse Rate-Sitting 100 bpm Respiration Rate 22 per min Temp-Oral 98 F Weight 266 lbs Oxygen Saturation 95 % General Appearance: - Well-appearing. - Awake. - Alert. - Well developed. - Well nourished. - Well hydrated. - Active. - In no acute distress. Ears: Right Ear: Tympanic Membrane: - Normal. - Not erythematous. Left Ear: Tympanic Membrane: - Normal. - Not erythematous. Nose: General/bilateral: Discharge: - No nasal discharge. Cavity: - Nasal mucosa not red. Sinus Tenderness: - No sinus tenderness. Pharynx: Oropharynx: - Tonsils were erythematous. - Inflamed. - Soft palate was normal. - Tonsils were not enlarged. - Tonsils showed no exudate. Mucosal: - Pharynx showed no accumulation of mucous. Lymph Nodes: - Normal. Lungs: - Clear to auscultation. Cardiovascular: Heart Rate And Rhythm: - Normal. Heart Sounds: - Normal. Abdomen: Auscultation: - Bowel sounds were normal. Palpation: - No direct tenderness in the abdomen. Skin: - Normal. - Mucous membranes were not dry. Tests - Test: Group A strep Report Date: 04/03/2024 Rapid Strep positive Abnormal LOT # AND EXP. DATE [id number] 09/02/26 Normal INT. QC ACCEPTABLE? y Normal Assessment - Group A streptococcus: B hemolytic pharyngitis [Streptococcal pharyngitis] Therapy - Reviewed PMH for antibacterials used for previous infections. - Plan of care reviewed and agreed to. Pt to use OTC fever/pain product as needed per product instruction. . Pt / family were notified that strep pharyngitis testing was POSITIVE. Strep pharyngitis etiology, natural course, possible complications, and treatment options were discussed. Pt will start antibiotic therapy as ordered. Discussed with pt /family that pt is contagious for 24 hours after start of antibiotic therapy and the importance of completing full course of antibiotic therapy. Recommended replacement of oral care products after three days of antibiotic therapy to reduce risk reinoculation with strep. Observe for signs/symptoms of strep in pt contacts. Discussed with pt /family expected course of improvement. Pt may return to activities after completing 24 hours of antibiotic therapy and feel well. Family to call back if not better in 3 days or worsens. Plan StartCited - Other Amoxicillin 500 MG capsule 1 CAPSULE TWO TIMES A DAY, 10 days, 0 refills EndCited StartCited - Streptococcal pharyngitis In office procedures/*Clia Waived Labs: Rapid Strep Test EndCited - Continue current medication Pt to use prescription as ordered. Purpose of and use of medication discussed. . Practice Management Review of medications documented.
--- OUTSIDE RECORDS SUMMARY | 2025-02-20 15:00 | XMS_ITS | Clinical Summary ---
Author Organization [facility] Address [address] [place] [address] Phone Care Team Providers Care Disbursement Clerk Name Role Phone BEE TIRADO MD Primary Care Provider [phone] Reason for Visit and Chief Complaint The Chief Complaint is: Starting Wednesday the caregivers where she lives noticed her having some nasal congestion/runny nose. There was a couple of residents who had strep last week so they wanted her to be tested Plan of Treatment - Continue current medication - Last Documented On 04/03/2024 11:55AM ; [facility] Pt to use prescription as ordered. Purpose of and use of medication discussed. . - Last Documented On 04/03/2024 11:55AM ; [facility] Assessments Includes: Assessments from this encounter Findings - Group A streptococcus: B hemolytic pharyngitis [Streptococcal pharyngitis] - Last Documented On 04/03/2024 11:55AM ; [facility] Medical Equipment - Implanted Devices Includes: Current Devices No Medical Equipment Recorded Medications Includes: Medications discussed during this encounter and other current Medications New / Renewed during this visit VOLODYMYR HUERTA on 04/03/2024 Amoxicillin 500 MG Oral Capsule Provider: VOLODYMYR Griffith 10 day supply: 20 capsule, 0 refills Diagnosis: 1 CAPSULE TWO TIMES A DAY Pharmacy: [id number] - [address] [facility], [address] - Last Documented On 04/03/2024 11:42AM By Volodymyr ALMANZA ; [facility] Current Medications (continue as prescribed) SB Bacitracin 500 UNIT/GM External Ointment 08/24/2023 Provider: Diagnosis: Last Documented On 08/24/2023 9:55AM By Bossman Feng [facility] Banophen 25 MG Oral Capsule 08/24/2023 Provider: Diagnosis: Last Documented On 08/24/2023 9:55AM By Bossman RUGGIERO ; [facility] Calcipotriene 0.005% External Cream 08/24/2023 Provi giancarlo: Diagnosis: Last Documented On 08/24/2023 9:56AM By Bossman RUGGIERO ; [facility] Allergy Relief (Cetirizine) 10 MG Oral Tablet 08/24/20 Provider: Diagnosis: Last Documented On 08/24/2023 9:56AM By Bossman RUGGIERO ; [facility] Clobetasol Propionate 0.05% External Cream 08/24/2023 Provider: Diagnosis: Last Documented On 08/24/2023 9:57AM By Bossman RUGGIERO ; [facility] Crestor 10 MG Oral Tablet 08/24/2023 Provider: Diagnosis: Last Documented On 08/24/2023 9:57AM By Bossman RUGGIERO ; [facility] Fish Oil 1000 MG Oral Capsule 08/24/2023 Provide r: Diagnosis: Last Documented On 08/24/2023 9:57AM By Bossman RUGGIERO ; [facility] Furosemide 20 MG Oral Tablet 08/24/2023 Provider: Diagnosis: Last Documented On 08/24/2023 9:57AM By Bossman RUGGIERO ; [facility] Curad Hydrocortisone 1% External Cream 08/24/2023 Pr ovider: Diagnosis: Last Documented On 08/24/2023 9:58AM By Bossman RUGGIERO ; [facility] hydrOXYzine HCl 25 MG Oral Tablet 08/24/2023 Provide r: Diagnosis: Last Documented On 08/24/2023 9:58AM By Bossman RUGGIERO ; [facility] Levothyroxine Sodium 50 MCG Oral Tablet 08/24/2023 P rovider: Diagnosis: Last Documented On 08/24/2023 9:59AM By Bossman RUGGIERO ; [facility] Robafen DM Cough 10-100 MG/5ML Oral Liquid 08/24/2023 Provider: Diagnosis: Last Documented On 08/24/2023 10:00AM By Bossman RUGGIERO ; [facility] Acetaminophen 325 MG Oral Capsule 08/24/2023 Provide r: Diagnosis: Last Documented On 08/24/2023 9:54AM By Bossman RUGGIERO ; [facility] Medications Administered Includes: Administered Medications from this encounter No Administered Medications Recorded Vital Signs Includes: Vital Signs from this encounter Vital Name 04/03/2024 11:27A Pulse Rate-Sitting (bpm) 100 Respiration Rate (breaths/min) 22 Temp-Oral (F) 98 Weight (lb) 266 Oxygen Saturation (%) 95 Last Documented: On 04/03/2024 11:29A M ; [facility] Results Includes: Results discussed during this encounter Group A strep [facility] Ordered by VOLODYMYR HUERTA on 12/2023 Collected: Reported: 04/03/2024 11:39 Last Documented On 11:39AM ; [facility] Reviewed on 04/03/2024; All test results are final unless otherwise noted. Rapid Strep positive A (Abnormal) Last Documented On 11:38AM ; [facility] LOT # AND EXP. DATE [id number] 09/02/26 N (Normal) Last Documented On 4 11:38AM ; [facility] INT. QC ACCEPTABLE? y N (Normal) Last Documented On 4 11:38AM ; [facility] History of Present Illness Includes: History of Present Illness from this encounter HPI ARGENIS MONTERO is a 58 year old [...] - No vomiting - No abdominal pain Argenis is a 58-year-old female patient that presented to the walk-in clinic with her caregiver for nasal drainage and fatigue. She has been exposed to strep throat by other residents, so staff is requesting strep testing. She has been taking benadryl and tylenol as needed for symptoms. 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 Strep pharyngitis [...] if not better in 3 days or worsens Last Documented On 4 11:53AM ; [facility] plan of care reviewed and agreed to Last Documented On 4 11:53AM ; [facility] review of medications documented [id number] Last Documented On 4 11:27AM ; [facility] Medical History Includes: Medical History addressed during this encounter No Medical History Recorded Family History Includes: Family History addressed during this encounter No Family History Recorded Review of Systems Includes: Review of Systems from this encounter Systemic: No fever. Head: No headache. Otolaryngeal: No earache. Nasal discharge and sore throat. Cardiovascular: No chest pain or discomfort. Pulmonary: No cough and no wheezing. Gastrointestinal: No vomiting, no abdominal pain, and no diarrhea. Skin: No skin lesions. Mental Status Includes: Mental Status from this encounter No Mental Status Recorded Functional Status Includes: Functional Status from this encounter No Functional Status Recorded Physical Exam Includes: Physical Exam from this encounter Allergies Includes: Active Allergies No Known Allergies Encounters Encounter Provider Location Date Check-In Time Check-Out Time Diagnosis COVID SICK VISIT- ESTABLISHED PATIENT VOLODYMYR E RAFITA [employer]CH[employer]UCATION TEACHER-C [facility] 04/03/20 24 11:15AM 11:42AM Pharyngitis Streptococcus, Group A: Beta Hemolytic Insurance Includes: Active Insurance Policies Plan Name Member ID Group # Subscriber Relationship Effect ajay Dates 1 - [facility]/MEDICARE ADV/[employer] [id number] ARGENIS MONTERO Self 2 - MEDICA[employer] [place] MEDICARE SECOND [id number] ARGENIS MONTERO Self Clinical Notes Includes: Clinical Notes from this encounter * Progress note Date Encounter Last Documented by 04/03/2024 COVID SICK VISIT- ESTABLISHED PA JM Last documented on 04/03/2024; 11:55 AM, VOLODYMYR HUERTA; [facility] Chief Complaint The Chief Complaint is: Starting Wednesday the caregivers where she lives noticed her having some nasal congestion/runny nose. There was a couple of residents who had strep last week so they wanted her to be tested. History of Present Illness ARGENIS MONTERO is [...] - No vomiting - No abdominal pain Argenis is a 58-year-old female patient that presented [...] positive Abnormal LOT # AND EXP. DATE [id number] 09/02/26 Normal INT. QC ACCEPTABLE? y Normal [...]
--- OUTSIDE RECORDS SUMMARY | 2025-02-20 15:00 | XMS_ITS | Continuity of Care Document ---
Author Organization [employer] Address [address] [place] [address] Phone Care Team Providers Care Machine Technician Name Role Phone Tyrell SENIOR PLANNER-Matilde Griffith Unavailable Unavailable Allergies, Adverse Reactions, Alerts Substance Reaction Status Criticality No Known Allergies Active No Inform ation Medications Medication Instructions Dosage Effective Dates (start - stop) Status Comments olopatadine 0.2 % eye drops instill 1 drop by ophthalmic route every day into affected eye(s) as needed 1.00 drop - Active nystatin 100,000 unit/gram topical powder apply by topical route 2-3 times every day to the affected area(s) as needed - Active Lasix 20 mg tablet take 1.5 tablet by oral route every day 30 MG - Active dose increase clobetasol 0.05 % topical ointment apply by topical route 2 times every day a thin layer to the thickened areas of skin for 2 weeks or with flares, stop if cleared, if not cleared, rotate with calcipotriene every 2 weeks. - Active calcipotriene 0.005 % topical ointment apply by topical route twice daily a thin layer to the affected areas cleared by clobetasol, if not cleared, rotate each ointment every 2 weeks - Active hydroxyzine HCl 25 mg tablet TAKE 1 TABLET BY MOUTH TWICE DAILY FOR ITCHING - Active Levoxyl 50 mcg tablet TAKE 1 TABLET BY MOUTH DAILY FOR THYROID - Active NeuroActives BrainSustain 100 mg-37.5 mg-25 mg-25 mg capsule one capsule at bedtime - Active Crestor 10 mg tablet take 1 tablet by oral route every day - Active cetirizine 10 mg tablet take 1 tablet by oral route every day 10 MG - Active Fish Oil 1,000 mg (120 mg-180 mg) capsule once daily - Active Procedures Procedure Date OFFICE/OUTPATIENT VISIT, EST OFFICE/OUTPATIENT VISIT, EST REMOVE IMPACTED EAR WAX OFFICE/OUTPATIENT VISIT, EST OFFICE/OUTPATIENT VISIT, EST OFFICE/OUTPATIENT VISIT, EST OFFICE/OUTPATIENT VISIT, EST OFFICE/OUTPATIENT VISIT, EST OFFICE/OUTPATIENT VISIT, EST REMOVE IMPACTED EAR WAX UNI OFFICE/OUTPATIENT VISIT, EST IMMUNIZATION ADMIN TDAP VACCINE >7 IM OFFICE/OUTPATIENT VISIT, EST OFFICE/OUTPATIENT VISIT, EST ROUTINE VENIPUNCTURE OFFICE/OUTPATIENT VISIT, EST OFFICE/OUTPATIENT VISIT, EST OFFICE/OUTPATIENT VISIT, EST OFFICE/OUTPATIENT VISIT, EST ROUTINE VENIPUNCTURE IMMUNIZATION ADMIN FLU VACCINE, 3 YRS & >, IM OFFICE/OUTPATIENT VISIT, EST OFFICE/OUTPATIENT VISIT, EST ROUTINE VENIPUNCTURE OFFICE/OUTPATIENT VISIT, EST IMMUNIZATION ADMIN FLU VACCINE, 3 YRS & >, IM FLU VACCINE, 3 YRS & >, IM OFFICE/OUTPATIENT VISIT, EST ASSAY TEST FOR BLOOD, FECAL OFFICE/OUTPATIENT VISIT, EST ROUTINE VENIPUNCTURE OFFICE/OUTPATIENT VISIT, EST ASSAY TEST FOR BLOOD, FECAL OFFICE/OUTPATIENT VISIT, EST ROUTINE VENIPUNCTURE OFFICE/OUTPATIENT VISIT, EST OFFICE/OUTPATIENT VISIT, EST OFFICE/OUTPATIENT VISIT, EST ROUTINE VENIPUNCTURE OFFICE/OUTPATIENT VISIT, EST OFFICE/OUTPATIENT VISIT, EST IMMUNIZATION ADMIN PNEUMOCOCCAL VACC 13 KARISSA IM PNEUMOCOCCAL VACCINE Admin pneumococcal vaccine OFFICE/OUTPATIENT VISIT, EST ROUTINE VENIPUNCTURE FLU VACCINE, 3 YRS & >, IM Admin influenza virus vac OFFICE/OUTPATIENT VISIT, EST IMMUNIZATION ADMIN FLU VACCINE, 3 YRS & >, IM OFFICE/OUTPATIENT VISIT, EST OFFICE/OUTPATIENT VISIT, EST ROUTINE VENIPUNCTURE OFFICE/OUTPATIENT VISIT, EST IMMUNIZATION ADMIN FLU VACCINE, 3 YRS & >, IM FLU VACCINE, 3 YRS & >, IM OFFICE/OUTPATIENT VISIT, EST PREV VISIT, EST, AGE 40-64 ROUTINE VENIPUNCTURE OFFICE/OUTPATIENT VISIT, EST OFFICE/OUTPATIENT VISIT, EST OFFICE/OUTPATIENT VISIT, EST OFFICE/OUTPATIENT VISIT, EST IMMUNIZATION ADMIN FLU VACCINE, 3 YRS & >, IM OFFICE/OUTPATIENT VISIT, EST OFFICE/OUTPATIENT VISIT, EST URINALYSIS NONAUTO W/O SCOPE OFFICE/OUTPATIENT VISIT, EST OFFICE/OUTPATIENT VISIT, EST OFFICE/OUTPATIENT VISIT, EST OFFICE/OUTPATIENT VISIT, EST OFFICE/OUTPATIENT VISIT, EST OFFICE/OUTPATIENT VISIT, EST IMMUNIZATION ADMIN FLU VACCINE, 3 YRS & >, IM OFFICE/OUTPATIENT VISIT, EST OFFICE/OUTPATIENT VISIT, EST OFFICE/OUTPATIENT VISIT, EST URINALYSIS NONAUTO W/O SCOPE PREV VISIT, EST, AGE 40-64 COMPREHEN METABOLIC PANEL ROUTINE VENIPUNCTURE LIPID PANEL ROUTINE VENIPUNCTURE ASSAY OF FREE THYROXINE ROUTINE VENIPUNCTURE ASSAY THYROID STIM HORMONE ROUTINE VENIPUNCTURE FLU VACCINE NO PRESERV 3 & > Admin influenza virus vac OFFICE/OUTPATIENT VISIT, EST URINALYSIS NONAUTO W/O SCOPE PREV VISIT, EST, AGE 40-64 OFFICE/OUTPATIENT VISIT, EST MEASURE BLOOD OXYGEN LEVEL ROUTINE VENIPUNCTURE MEASURE BLOOD OXYGEN LEVEL FLU VACCINE, 3 YRS & >, IM REMOVE IMPACTED EAR WAX ROUTINE VENIPUNCTURE URINALYSIS NONAUTO W/O SCOPE FLU VACCINE, 3 YRS & >, IM ROUTINE VENIPUNCTURE Methylprednisolone 80 MG inj MEASURE BLOOD OXYGEN LEVEL Advance Directives Directive Yes / No Effective Date File Name No Information Encounters Encounter Description Practice Location Reason(s) For Visit Diagnoses Date Provider Providers Copied on Encounter [facility], [address] [place] [address], [facility], tel:[phone] [facility] 3 MONTH FOLLOW UP (chief complaint) No Information 4 Tyrell Clayton. [address] [place] [address], [address], [place]. tel:[phone] OFFICE/OUTPA TIENT VISIT, EST [facility], [address] [place] [address], [facility], tel:[phone] [facility] YEAST INFECTION (chief complaint) Acute atopic conjunctiviti s, unspecified eyeCandidal intertrigo 4 Tyrell oHoddal. [address] [place] [address], [address], [place]. tel:[phone] OFFICE/OUTPA TIENT VISIT, [facility], [address] [place] [address], [facility], [place] tel: [phone] [facility] YEAST INFECTION (chief complaint) Allergic conjunctiviti s, bilateralObes ity, unspecifiedIr ritation symptom of skin 4 Brown Matilde. [address] [place] [address], [facility], [place]. tel:[phone] OFFICE/OUTPA TIENT VISIT, [facility], [address] [place] [address], [facility], [place] tel: [phone] [facility] HEARING ISSUE (chief complaint) Conductive hearing loss, bilateralOthe r abnormalities of gait and mobilityBilat eral impacted cerumen Jan- 4 Brown Matilde. [address] [place] [address], [facility], [place]. tel: [phone] OFFICE/OUTPA TIENT VISIT, [facility], [address] [place] [address], [facility], [place] tel: [phone] [facility] RASH (chief complaint) Unsteady gaitEdema, unspecifiedOb esity, unspecifiedMi xed hyperlipidemi aHypothyroidi sm, unspecifiedPr oblems related to living in residential institutionVi tamin D deficiency, unspecifiedMi xed incontinenceU nspecified intellectual disabilitiesU nspecified osteoarthriti s, unspecified siteOther psoriasisCond uctive hearing loss, bilateralVent ral hernia without obstruction or gangreneSkin rash Dec- 4 Brown Matilde. [address] [place] [address], [facility], [place]. tel: [phone] OFFICE/OUTPA TIENT VISIT, [facility], [address] [place] [address], [facility], [place] tel: [phone] [facility] WEIGHT GAIN/SWELLI NG (chief complaint) LANG (dyspnea on exertion)Tyrese a, unspecified Dec-0 3 Brown Matilde. [address] [place] [address], [facility], [place]. tel: [facility], [address] [place] [address], [facility], tel: [phone] [facility] Other psoriasis 3 Tyrell Jonesl. [address] [place] [address], [facility], . tel:[phone] [facility], [address] [place] [address], [facility], tel: [phone] [facility] 3 Tyrell Jonesl. [address] [place] [address], [facility], [place]. tel: OFFICE/OUTPA TIENT VISIT, [facility], [address] [place] [address], [facility], tel:[phone] [facility] PHYSICAL (chief complaint) PsoriasisMixe d incontinenceE elodia, unspecified 3 Tyrell Hooddal. [address] [place] [address], [facility], [place]. tel:[phone] OFFICE/OUTPA TIENT VISIT, [facility], [address] [place] [address], [facility], [place] tel: [phone] [facility] CHECK UP (chief complaint) Edema, unspecifiedOb esity, unspecifiedMi xed hyperlipidemi aHypothyroidi sm, unspecifiedVi tamin D deficiency, unspecifiedMi xed incontinenceU nspecified intellectual disabilitiesU nspecified osteoarthriti s, unspecified siteOther psoriasisCond uctive hearing loss, bilateralVent ral hernia without obstruction or gangreneEncou nter for screening mammogram for malignant neoplasm of breast 3 Tyrell Hooddal. [address] [place] [address], [facility], [place]. tel:[phone] OFFICE/OUTPA TIENT VISIT, [facility], [address] [place] [address], [facility], [place] tel: [phone] [facility] 6 month f/u (chief complaint) Hypothyroidis m, unspecifiedVi tamin D deficiency, unspecified 2 Tyrell Jonesl. [address] [place] [address], [facility], . [phone] OFFICE/OUTPA TIENT VISIT, [facility], [address] [place] [address], [facility], [phone] [facility] EST CARE (chief complaint)h earing loss (chief complaint)E levated blood pressure (chief complaint) Encounter to establish careEdema, unspecifiedOb esity, unspecifiedMi xed hyperlipidemi aHypothyroidi sm, unspecifiedEl evated blood pressure readingUnspec ified intellectual disabilitiesU nspecified osteoarthriti s, unspecified siteOther psoriasisCond uctive hearing loss, bilateralVent ral hernia without obstruction or gangreneImpac giuliano cerumen, bilateralEnco unter for screening mammogram for malignant neoplasm of breast 2 Tyrell Jonesl. [address] [place] [address], [facility], . [phone] [facility], [address] [place] [address], [facility], tel:[phone] [place] No Information 2 Jovan Eckert. [address] [place] [address], [facility], . [phone] OFFICE/OUTPA TIENT VISIT, [facility], [address] [place] [address], [facility], [phone] [facility] f/u labs (chief complaint)n egative for covid questions (chief complaint) Hypothyroidis m, unspecifiedLo wer extremity edemaPsoriasi s, unspecifiedMi xed hyperlipidemi aRecommendati on refused by patientUrinar y tract infection with hematuria, site unspecifiedBM I 45.0-49.9, adult Oct-0 1 No Information OFFICE/OUTPA TIENT VISIT, [facility], [address] [place] [address], [facility], [phone] [facility] labs (chief complaint)n egative for covid questions (chief complaint) Urinary symptom or signHTNHyperl ipidemia, unspecifiedHy pothyroidism, unspecified Sep- 1 No Information OFFICE/OUTPA TIENT VISIT, [facility], [address] [place] [address], [facility], tel:[phone] [facility] BLISTER ON FOOT (chief complaint)N EGATIVE FOR COVID QUESTIONS (chief complaint) Cellulitis of toe of right foot 1 No Information OFFICE/OUTPA TIENT VISIT, [facility], [address] [place] [address], [facility], tel:[phone] [facility] F/U LABS (chief complaint)N EGATIVE FOR COVID QUESTIONS (chief complaint) Hyperlipidemi a, unspecifiedHy pothyroidism, unspecifiedPs oriasis, unspecifiedOb esity, unspecifiedVi tamin D deficiencyAbd ominal hernia without obstruction and without gangrene, recurrence not specified, unspecified hernia typeEncounter for screening mammogram for malignant neoplasm of breastLower extremity edema 1 No Information OFFICE/OUTPA TIENT VISIT, [facility], [address] [place] [address], [facility], tel:[phone] [facility] LABS (chief complaint)n egative fro covid questions (chief complaint) HTNHyperlipid emia, unspecifiedHy pothyroidism, unspecifiedVi tamin D deficiency 1 No Information [facility], [address] [place] [address], [facility], [place] tel:[phone] [facility] flu shot (chief complaint)n egative for covid questions. (chief complaint) Need for influenza vaccination 0 Ken Mc. [address] [place] [address], [facility], [place]. tel:[phone] OFFICE/OUTPA TIENT VISIT, [facility], [address] [place] [address], [facility], tel:[phone] [facility] F/U LABS (chief complaint)c ovid questions asked, negative response received. (chief complaint) Vitamin D deficiencyEnc ounter for screening mammogram for malignant neoplasm of breastHTNHypo thyroidism, unspecifiedHy pertriglyceri demia Sep-1 - 0 Ken Mc. [address] [place] [address], [facility], [place]. tel:[phone] [facility], [address] [place] [address], [facility], [place] tel: [phone] [facility] labs (chief complaint)c ovid questions asked, negative response received. (chief complaint) HTNHyperlipid emia, unspecifiedHy pothyroidism, unspecified Sep-0 4-202 0 Kne Mc. [address] [place] [address], [facility], [place]. tel:[phone] OFFICE/OUTPA TIENT VISIT, [facility], [address] [place] [address], [facility], [place] tel:[phone] [facility] Follow up (chief complaint) HTNHypertrigl yceridemiaHyp othyroidism, unspecifiedHy perlipidemia, unspecified Fe-0 - 0 Janes Rocha. [address] [place], [place], [facility], [place]. tel:[phone] OFFICE/OUTPA TIENT VISIT, [facility], [address] [place] [address], [facility], [place] tel: [phone] [facility] labs (chief complaint) HTN Nov- 0 Janes Wilhelm [address] [place], [place], [facility], [place]. tel:[phone] OFFICE/OUTPA TIENT VISIT, [facility], [address] [place] [address], [facility], [place] tel:[phone] [facility] flu shot (chief complaint) Encounter for immunization -201 9 Janes Wilhelm [address] [place], [place], [facility], [place]. tel:[phone] [facility], [address] [place] [address], [address], [place] tel:[phone] [facility] Encounter for screening for malignant neoplasm of colon 9 Janes Rocha. [address] [place], [place], [facility], [place]. tel:[phone] OFFICE/OUTPA TIENT VISIT, [facility], [address] [place] [address], [address], [place] tel:[phone] [facility] follow up (chief complaint) HTNHypothyroi dism, unspecifiedOb esity, unspecifiedMi xed hyperlipidemi a 9 Janes Rocha. [address] [place], [place], [facility], [place]. tel:[phone] OFFICE/OUTPA TIENT VISIT, [facility], [address] [place] [address], [address], [place] tel:[phone] [facility] labs (chief complaint) HTN 9 Janes Josefina. [address] [place], [place], [facility], [place]. tel:[phone] [facility], [address] [place] [address], [address], [place] tel:[phone] [facility] Encounter for screening for malignant neoplasm of colon 9 Janes Rocha. [address] [place], [facility], [place]. tel:[phone] OFFICE/OUTPA TIENT VISIT, [facility], [address] [place] [address], [address], [place] tel:[phone] [facility] lab review (chief complaint)n urse note (chief complaint) HTNHyperlipid emia, unspecifiedHy pothyroidism, unspecifiedOb esity, unspecifiedEn counter for screening mammogram for malignant neoplasm of breastEncount er for screening for cancer of colonHypertri glyceridemia 9 Janes Rocha. [address] [place], [address], [place]. tel:[phone] OFFICE/OUTPA TIENT VISIT, [facility], [address] [place] [address], [address], [place] tel:[phone] [facility] labs (chief complaint) Hypothyroidis m, unspecified 9 Janes Rocha. [address] [place], [facility], [place]. tel: OFFICE/OUTPA TIENT VISIT, [facility], [address] [place] [address], [address], [place] tel:[phone] [facility] fell at work shop (chief complaint) Injury of right knee, initial encounter 8 Janes Rocha. [address] [place], [place], [facility], [place]. tel: OFFICE/OUTPA TIENT VISIT, [facility], [address] [place] [address], [address], [place] tel:[phone] [facility] Lab follow-up (chief complaint) HTNHyperlipid emia, unspecifiedHy pothyroidism, unspecifiedOb esity, unspecifiedEn counter for other general advice on contraception Psoriasis, unspecified 8 Janes Rocha. [address] [place], [facility], [place]. tel: OFFICE/OUTPA TIENT VISIT, [facility], [address] [place] [address], [address], [place] tel:[phone] [facility] labs (chief complaint) Hyperlipidemi a, unspecified 8 Janes Rocha. [address] [place], [facility], [place]. tel: OFFICE/OUTPA TIENT VISIT, [facility], [address] [place] [address], [address], [place] tel:[phone] [facility] Eye problems (chief complaint) Conjunctiviti s 7 Janes [address] [place], [address], [place]. tel: OFFICE/OUTPA TIENT VISIT, [facility], [address] [place] [address], [facility], [place] tel:[phone] [facility] lab follow up (chief complaint)r efill (chief complaint)P revnar 13 vaccine (chief complaint) HTNHyperlipid emia, unspecifiedHy pothyroidism, unspecifiedOb esity, unspecifiedPs oriasis, unspecifiedEn counter for immunization Janes Rocha. [address] [place], [place], [facility], [place]. tel:[phone] OFFICE/OUTPA TIENT VISIT, [facility], [address] [place] [address], [facility], [place] tel:[phone] [facility] labs (chief complaint)f darin vaccine (chief complaint) Encounter for immunizationH TNHyperlipide doug, unspecifiedHy pothyroidism, unspecified Janes Rocha. [address] [place], [place], [facility], [place]. tel:[phone] OFFICE/OUTPA TIENT VISIT, [facility], [address] [place] [address], [facility], [place] tel:[phone] [facility] f/u ER (chief complaint) Follow-up visit after completion of treatment 7 Janes Rocha. [address] [place], [facility], [place]. tel:[phone] OFFICE/OUTPA TIENT VISIT, [facility], [address] [place] [address], [facility], [place] tel:[phone] [facility] F/U LABS (chief complaint)w ork physical (chief complaint)c heck ears (chief complaint)s pot on face (chief complaint) Encounter for general adult medical examination without abnormal findingsHyper lipidemia, unspecifiedHT N 7 Janes Rocha. [address] [place], [facility], [place]. tel:[phone] OFFICE/OUTPA TIENT VISIT, [facility], [address] [place] [address], [facility], [place] tel: [phone] [facility] labs (chief complaint) Hyperlipidemi a, unspecifiedHy pothyroidism, unspecified Apr-0 7 Janes Rocha. [address] [place], [facility], [place]. tel:[phone] OFFICE/OUTPA TIENT VISIT, [facility], [address] [place] [address], [facility], [place] tel: [phone] [facility] FLU SHOT (chief complaint) Encounter for immunization 6 Janes Rocha. [address] [place], [facility], [place]. tel:[phone] PREV VISIT, [facility], AGE 40-64 [facility], [address] [place] [address], [facility], [place] tel:[phone] [facility] f/u labs (chief complaint)P hysical for work (chief complaint) Encounter for screening mammogram for malignant neoplasm of breastHyperli pidemia, unspecifiedHy pothyroidism, unspecifiedHT N 6 Janes Rocha. [address] [place], [facility], [place]. tel:[phone] OFFICE/OUTPA TIENT VISIT, [facility], [address] [place] [address], [facility], [place] tel: [phone] [facility] labs (chief complaint) Hyperlipidemi a, unspecifiedHy pothyroidism, unspecifiedHT NConjunctivit is 6 Janes Rocha. [address] [place], [facility], [place]. tel:[phone] OFFICE/OUTPA TIENT VISIT, [facility], [address] [place] [address], [address], [place] tel:[phone] [facility] f/u labs (chief complaint)h yperlipidem ia (chief complaint)h ypertension (chief complaint)T hyroid problems (chief complaint) Hypothyroidis m, unspecifiedHT NHyperlipidem ia, unspecifiedPs oriasis, unspecified Jan-2 2 6 Janes [address]ocha. [address] [place], [address], [place]. tel:[phone] OFFICE/OUTPA TIENT VISIT, [facility], [address] [place] [address], [address], [place] tel:[phone] [facility] labs (chief complaint) Hyperlipidemi a, unspecifiedHy pothyroidism, unspecifiedOb esity, unspecified Jan- 8-201 6 Janes [address]ocha. [address] [place], [address], [place]. tel:[phone] OFFICE/OUTPA TIENT VISIT, [facility], [address] [place] [address], [address], [place] tel:[phone] [facility] f/u labs (chief complaint)h ypertension (chief complaint)h yperlipidem ia (chief complaint) Hyperlipidemi a, unspecifiedHy pothyroidism, unspecified Aug- 5 Janes Rocha. [address] [place], [address], [place]. tel:[phone] OFFICE/OUTPA TIENT VISIT, [facility], [address] [place] [address], [address], [place] tel:[phone] [facility] labs (chief complaint) Encounter for immunizationH yperlipidemia , unspecifiedHy pothyroidism, unspecifiedOb esity, unspecified Aug- 5 Janes [address]ocha. [address] [place], [address], [place]. tel:[phone] OFFICE/OUTPA TIENT VISIT, [facility], [address] [place] [address], [address], [place] tel:[phone] [facility] physical (chief complaint)h yperlipidem ia (chief complaint)c hronic conditions (chief complaint) Hypothyroidis mObesityOther and unspecified hyperlipidemi aPsoriasisRou bill Medical Exam Jack-2 4-201 5 Janes Josefina. [address] [place], [facility], [place]. tel:[phone] OFFICE/OUTPA TIENT VISIT, [facility], [address] [place] [address], [address], [place] tel:[phone] [facility] f/u on leg (chief complaint) Cellulitis 5 No Information OFFICE/OUTPA TIENT VISIT, [facility], [address] [place] [address], [address], [place] tel:[phone] [facility] redness to leg (chief complaint) Cellulitis 5 No Information OFFICE/OUTPA TIENT VISIT, [facility], [address] [place] [address], [facility] [facility] tel:[phone] [facility] f/u (chief complaint) Lower extremity edema 5 No Information OFFICE/OUTPA TIENT VISIT, [facility], [address] [place] [address], [facility] [place] tel:[phone] [facility] f/u (chief complaint) Lower extremity edema 5 No Information OFFICE/OUTPA TIENT VISIT, [facility], [address] [place] [address], [address], [place] tel:[phone] [facility] swelling (chief complaint) Lower extremity edemaPsoriasi s 4 No Information OFFICE/OUTPA TIENT VISIT, [facility], [address] [place] [address], [address], [place] tel:[phone] [facility] Follow up on lab test(s) (chief complaint)r edel under breast (chief complaint) Hypothyroidis mSkin yeast infectionScre ening mammogram 4 No Information [facility], [address] [place] [address], [address], [place] tel:[phone] [facility] labs (chief complaint) No Information 4 No Information OFFICE/OUTPA TIENT VISIT, [facility], [address] [place] [address], [address], [place] tel:[phone] [facility] Rash (chief complaint) Cellulitis 4 No Information OFFICE/OUTPA TIENT VISIT, [facility], [address] [place] [address], [address], [place] tel:[phone] [facility] f/u (chief complaint) Cellulitis 4 No Information OFFICE/OUTPA TIENT VISIT, [facility], [address] [place] [address], [address], [place] tel:[phone] [facility] flu-like symptoms (chief complaint)D ark urine (chief complaint)S kin problem (chief complaint) Cellulitis 4 No Information PREV VISIT, [facility], AGE 40-64 [facility], [address] [place] [address], [address], [place] tel:[phone] [facility] follow up on lab test(s) (chief complaint) Routine Medical ExamRoutine Medical Exam 4 No Information [facility], [address] [place] [address], [address], [place] tel:[phone] [facility] labs (chief complaint) Hypothyroidis mOther and unspecified hyperlipidemi a 4 No Information OFFICE/OUTPA TIENT VISIT, [facility], [address] [place] [address], [address], [place] tel:[phone] [facility] flu shot (chief complaint) Influenza Vaccine 3 No Information PREV VISIT, [facility], AGE 40-64 [facility], [address] [place] [address], [address], [place] tel:[phone] [facility] phy (chief complaint)f ollow up on lab test(s) (chief complaint) Routine Medical ExamOther and unspecified hyperlipidemi aObesityHypot hyroidismMild mental retardationPs oriasisRoutin e Medical ExamRoutine Medical Exam 3 No Information [facility], [address] [place] [address], [address], [place] tel:[phone] [facility] labs (chief complaint) Other and unspecified hyperlipidemi aHypothyroidi smObesityTher apeutic Drug Monitoring 3 No Information OFFICE/OUTPA TIENT VISIT, EST [facility], [address] [place] [address], [address], [place] tel:[phone] [facility] URI (chief complaint) Upper Respiratory Infection, Acute 2 [facility] Marly. [address] [place] [address], [facility], [place]. tel:[phone] [facility], [address] [place] [address], [facility], [place] tel:[phone] [facility] F/U (chief complaint)p hysical exam (chief complaint) Other and unspecified hyperlipidemi aUnspecified acquired hypothyroidis mObesity, unspecifiedOt her psoriasis and similar disordersMild mental retardation 2 No Information [facility], [address] [place] [address], [address], [place] tel:[phone] [facility] labs (chief complaint) Other and unspecified hyperlipidemi a 2 No Information [facility], [address] [place] [address], [facility], [place] tel:[phone] [facility] physical (chief complaint)l abs (chief complaint) Unspecified acquired hypothyroidis mOther and unspecified hyperlipidemi aObesity, unspecifiedMi ld mental retardation 1 No Information [facility], [address] [place] [address], [address], [place] tel:[phone] [facility] lab follow up (chief complaint) Other and unspecified hyperlipidemi aUnspecified acquired hypothyroidis mObesity, unspecifiedOt her psoriasis and similar disordersNeed for prophylactic vaccination and inoculation, influenza 0 No Information [facility], [address] [place] [address], [facility], [place] tel:[phone] [facility] lab test (chief complaint) No Information 0 No Information [facility], [address] [place] [address], [facility], tel:[phone] [facility] knee pain (chief complaint) Pain in joint involving lower leg 0 No Information [facility], [address] [place] [address], [facility], tel:[phone] [facility] labs and swollen leg (chief complaint) Other and unspecified hyperlipidemi aUnspecified acquired hypothyroidis mObesity, unspecified 9 No Information [facility], [address] [place] [address], [address], [phone] [facility] medication refill (chief complaint)b lood draw (chief complaint) Unspecified acquired hypothyroidis mOther and unspecified hyperlipidemi aOther malaise and fatigueOther psoriasis and similar disorders 0200 9 No Information Family History Family Member Type Diagnosis Age At Onset Problem (finding) Family history of migra ine Problem (finding) Family history of disor giancarlo of lung Problem (finding) Family history of osteo arthritis Maternal uncle Problem (finding) stroke Problem (finding) Family history of depre ssion Problem (finding) Family history of hyper tension Problem (finding) Family history of Diabe deni mellitus Problem (finding) Family history of asthm a Paternal uncle Problem (finding) malignant neoplasm of lung Problem (finding) Developmental delay Immunizations Vaccine Date Status Comments Influenza injectable quad administered Note: [facility] ; Source: Source Unspecified Influenza injectable quad administered Source: Other Regist ry Tdap administered Source: New Imm unization Record SARS-COV-2 (COVID-19) vaccin e, mRNA, spike protein, LNP, preservative free, 30 mcg/0.3mL dose administered Source: Source Unspe cified SARS-COV-2 (COVID-19) vaccin e, mRNA, spike protein, LNP, preservative free, 30 mcg/0.3mL dose administered Source: Other Regist ry Influenza, injectable, trivalent, split virus, 5 years and older, [facility] administered Source: New Immuniza tion Record Influenza, injectable, trivalent, split virus, 5 years and older, [facility] [id number] administered Source: New Immuniza tion Record Pneumococcal conjugate PCV 13 administere d Source: New Immunization Record Flu (split) (3 yrs or older) administered Source: New Immunization Record Flu (split) (3 yrs or older) administered Source: New Immunization Record Flu (split) (3 yrs or older) administered Source: New Immunization Record Flu (split) (3 yrs or older) administered Source: New Immunization Record flu (split) preservative dheeraj e, 3 yrs or older administered Note: Denies ever lisa Maldonado. ; Source: New Immunization Record flu (split) (3 yrs or older) administered Source: New Immunization Record Payers Payer name Insurance type Covered libertarian ID Authoriza tion(s) Medicare CI [id number] IDPA [id number] Medicare CI [id number] IDPA [id number] Medicare CI [id number] IDPA [id number] Medicare CI [id number] IDPA [id number] Medicare CI [id number] IDPA [id number] Medicare CI [id number] IDPA [id number] Medicare CI [id number] IDPA [id number] Social History Type Description Quantity Date Captured Comments Alcohol Use Details Unknown Caffeine Use Details Unknown Tobacco Use Status No Information Smoking Status No Information Sex Female Chief Complaint And Reason For Visit From encounter dated '04/14/2024 08:08'. 3 MONTH FOLLOW UP (chief complaint) Reason For Referral Reason For Referral No Information Plan Of Treatment Date Type Action Status Goal Tobacco cessation counseling completed Goal Tobacco cessation counseling completed Goal Influenza Vaccine. Due on due Goal Tdap due Goal Diabetes screening. Due on F due Goal Depression scree janet. Due on due Goal H&P. Due on due Goal FOBT. Due on due Goal Sigmoidoscopy. Due on due Goal TRUCKING MANAGER exam. Due on due Goal TSH. Due on due Goal Colonoscopy. Due on due Goal Lipid Panel. Due on due Goal Pap/HPV testing. Due on due Goal ALT. Due on due Goal Breast exam. Due on due Goal Depression scree janet. Due on due Goal Lipid Panel. Due on due Goal Pap/HPV testing. Due on due Goal TSH. Due on due Goal Tdap due Goal TRUCKING MANAGER exam. Due on due Goal ALT. Due on due Goal Breast exam. Due on due Goal Sigmoidoscopy. Due on due Goal FOBT. Due on due Goal Colonoscopy. Due on due Goal Influenza Vaccine. Due on Oc due Goal Diabetes screening. Due on J due Goal H&P. Due on due Goal TRUCKING MANAGER exam. Due on due Goal Sigmoidoscopy. Due on due Goal H&P. Due on due Goal Breast exam. Due on due Goal TSH. Due on due Goal Colonoscopy. Due on due Goal Tdap due Goal Influenza Vaccine. Due on Oc due Goal FOBT. Due on due Goal Depression scree janet. Due on due Goal Pap/HPV testing. Due on due Goal Diabetes screening. Due on O due Goal ALT. Due on due Goal Lipid Panel. Due on due Goal TD Vaccine. Due on due Goal ALT. Due on due Goal Colonoscopy. Due on due Goal Pap/HPV testing. Due on due Goal Lipid Panel. Due on due Goal TRUCKING MANAGER exam. Due on due Goal H&P. Due on due Goal Diabetes screening. Due on S due Goal Breast exam. Due on due Goal FOBT. Due on due Goal Sigmoidoscopy. Due on due Goal Influenza Vaccine. Due on due Goal TSH. Due on due Goal Depression scree janet. Due on due Goal Tdap. Due on due Goal Colonoscopy. Due on due Goal FOBT. Due on due Goal Sigmoidoscopy. Due on due Goal Depression scree janet. Due on due Goal Diabetes screening. Due on A due Goal ALT. Due on due Goal TD Vaccine. Due on due Goal H&P. Due on due Goal Lipid Panel. Due on due Goal TSH. Due on due Goal Influenza Vaccine. Due on due Goal TRUCKING MANAGER exam. Due on due Goal Breast exam. Due on due Goal Tdap. Due on due Goal Pap/HPV testing. Due on due Goal Breast exam. Due on due Goal Depression scree janet. Due on due Goal Pap/HPV testing. Due on due Goal ALT. Due on due Goal Lipid Panel. Due on due Goal Tdap. Due on due Goal TSH. Due on due Goal FOBT. Due on due Goal Diabetes screening. Due on due Goal TRUCKING MANAGER exam. Due on due Goal TD Vaccine. Due on due Goal Colonoscopy. Due on due Goal Influenza Vaccine. Due on Oc due Goal Sigmoidoscopy. Due on due Goal H&P. Due on due Goal Tdap. Due on due Goal TRUCKING MANAGER exam. Due on due Goal TSH. Due on due Goal Breast exam. Due on due Goal Lipid Panel. Due on due Goal TD Vaccine. Due on due Goal Depression scree janet. Due on due Goal Pap/HPV testing. Due on due Goal Diabetes screening. Due on due Goal FOBT. Due on due Goal Colonoscopy. Due on due Goal ALT. Due on due Goal H&P. Due on due Goal Influenza Vaccine. Due on Oc due Goal Sigmoidoscopy. Due on due Goal Breast exam. Due on due Goal Pap/HPV testing. Due on due Goal Depression scree janet. Due on due Goal TSH. Due on due Goal TRUCKING MANAGER exam. Due on due Goal Colonoscopy. Due on due Goal Tdap. Due on due Goal FOBT. Due on due Goal Sigmoidoscopy. Due on due Goal TD Vaccine. Due on due Goal Diabetes screening. Due on O due Goal Lipid Panel. Due on due Goal ALT. Due on due Goal Influenza Vaccine. Due on Oc due Goal H&P. Due on due Goal Diabetes screening. Due on S due Goal Sigmoidoscopy. Due on due Goal TRUCKING MANAGER exam. Due on due Goal Depression scree janet. Due on due Goal ALT. Due on due Goal H&P. Due on due Goal Lipid Panel. Due on due Goal Breast exam. Due on due Goal Pap/HPV testing. Due on due Goal TD Vaccine. Due on due Goal Colonoscopy. Due on due Goal FOBT. Due on due Goal Tdap. Due on due Goal Influenza Vaccine. Due on Oc due Goal TSH. Due on due Goal Tdap. Due on due Goal Pap/HPV testing. Due on due Goal H&P. Due on due Goal Lipid Panel. Due on 019 due Goal Diabetes screening. Due on due Goal Colonoscopy. Due on due Goal ALT. Due on due Goal TSH. Due on due Goal TRUCKING MANAGER exam. Due on due Goal Depression scree janet. Due on due Goal Breast exam. Due on due Goal Sigmoidoscopy. Due on due Goal TD Vaccine. Due on due Goal FOBT. Due on due Goal Influenza Vaccine. Due on Oc t due Goal Breast exam. Due on due Goal Colonoscopy. Due on due Goal Diabetes screening. Due on due Goal TD Vaccine. Due on due Goal TSH. Due on due Goal Lipid Panel. Due on 019 due Goal ALT. Due on due Goal H&P. Due on due Goal Pap/HPV testing. Due on due Goal Depression scree janet. Due on due Goal Influenza Vaccine. Due on Oc t due Goal FOBT. Due on due Goal Tdap. Due on due Goal TRUCKING MANAGER exam. Due on due Goal Sigmoidoscopy. Due on due Goal ALT. Due on due Goal TRUCKING MANAGER exam. Due on due Goal Sigmoidoscopy. Due on due Goal H&P. Due on due Goal Tdap. Due on due Goal FOBT. Due on due Goal Colonoscopy. Due on due Goal Influenza Vaccine. Due on Oc due Goal Diabetes screening. Due on due Goal Pap/HPV testing. Due on due Goal Depression scree janet. Due on due Goal Breast exam. Due on due Goal TD Vaccine. Due on due Goal Lipid Panel. Due on due Goal TSH. Due on due Goal FOBT. Due on due Goal Pap/HPV testing. Due on due Goal TRUCKING MANAGER exam. Due on due Goal Depression scree janet. Due on due Goal Influenza Vaccine. Due on Oc due Goal Tdap. Due on due Goal Colonoscopy. Due on due Goal Lipid Panel. Due on due Goal H&P. Due on due Goal TD Vaccine. Due on 19 due Goal Sigmoidoscopy. Due on due Goal Breast exam. Due on due Goal TSH. Due on due Goal Diabetes screening. Due on due Goal ALT. Due on due Goal ALT. Due on due Goal Diabetes screening. Due on due Goal Pap/HPV testing. Due on due Goal Depression scree janet. Due on due Goal TRUCKING MANAGER exam. Due on due Goal H&P. Due on due Goal TSH. Due on due Goal Colonoscopy. Due on due Goal Tdap. Due on due Goal Influenza Vaccine. Due on due Goal TD Vaccine. Due on due Goal Lipid Panel. Due on due Goal Sigmoidoscopy. Due on due Goal Breast exam. Due on due Goal FOBT. Due on due Goal H&P. Due on due Goal TRUCKING MANAGER exam. Due on due Goal Pap/HPV testing. Due on due Goal Colonoscopy. Due on due Goal Depression scree janet. Due on due Goal Breast exam. Due on due Goal ALT. Due on due Goal Lipid Panel. Due on due Goal FOBT. Due on due Goal Diabetes screening. Due on due Goal TSH. Due on due Goal Influenza Vaccine. Due on due Goal TD Vaccine. Due on due Goal Tdap. Due on due Goal Sigmoidoscopy. Due on due Goal ALT. Due on due Goal TD Vaccine. Due on due Goal Lipid Panel. Due on due Goal TSH. Due on due Goal Breast exam. Due on due Goal H&P. Due on due Goal FOBT. Due on due Goal Pap/HPV testing. Due on due Goal Diabetes screening. Due on due Goal Colonoscopy. Due on due Goal Tdap. Due on due Goal Influenza Vaccine. Due on due Goal Sigmoidoscopy. Due on due Goal Depression scree janet. Due on due Goal TRUCKING MANAGER exam. Due on due Goal ALT. Due on due Goal FOBT. Due on due Goal Influenza Vaccine. Due on due Goal Depression scree janet. Due on due Goal Diabetes screening. Due on due Goal Colonoscopy. Due on due Goal TRUCKING MANAGER exam. Due on due Goal TSH. Due on due Goal Sigmoidoscopy. Due on due Goal Lipid Panel. Due on due Goal Tdap. Due on due Goal H&P. Due on due Goal Breast exam. Due on due Goal Pap/HPV testing. Due on due Goal TD Vaccine. Due on due Goal Lipid Panel. Due on due Goal H&P. Due on due Goal Breast exam. Due on due Goal Sigmoidoscopy. Due on due Goal Influenza Vaccine. Due on due Goal Depression scree janet. Due on due Goal ALT. Due on due Goal Colonoscopy. Due on due Goal TD Vaccine. Due on due Goal TSH. Due on due Goal Diabetes screening. Due on due Goal Tdap. Due on due Goal TRUCKING MANAGER exam. Due on due Goal Pap/HPV testing. Due on due Goal FOBT. Due on due Goal Influenza Vaccine. Due on due Goal Depression scree janet. Due on due Goal Diabetes screening. Due on due Goal H&P. Due on due Goal Mammogram. Due on 8 due Goal TD Vaccine. Due on 19 due Goal ALT. Due on due Goal Sigmoidoscopy. Due on due Goal Pap/HPV testing. Due on due Goal TSH. Due on due Goal TRUCKING MANAGER exam. Due on due Goal Lipid Panel. Due on due Goal FOBT. Due on due Goal Colonoscopy. Due on due Goal Breast exam. Due on due Goal Tdap. Due on due Goal Breast exam. Due on due Goal Tdap. Due on due Goal Pap/HPV testing. Due on due Goal TRUCKING MANAGER exam. Due on due Goal Mammogram. Due on 8 due Goal FOBT. Due on due Goal TSH. Due on due Goal Lipid Panel. Due on due Goal Diabetes screening. Due on due Goal H&P. Due on due Goal TD Vaccine. Due on 18 due Goal ALT. Due on due Goal Influenza Vaccine. Due on due Goal Sigmoidoscopy. Due on due Goal Depression scree janet. Due on due Goal Colonoscopy. Due on due Goal H&P. Due on due Goal Colonoscopy. Due on due Goal ALT. Due on due Goal Sigmoidoscopy. Due on due Goal Breast exam. Due on due Goal TSH. Due on due Goal Pap/HPV testing. Due on due Goal Diabetes screening. Due on due Goal Mammogram. Due on 8 due Goal TRUCKING MANAGER exam. Due on due Goal Influenza Vaccine. Due on due Goal FOBT. Due on due Goal Lipid Panel. Due on due Goal TD Vaccine. Due on 18 due Goal Depression scree janet. Due on due Goal Tdap. Due on due Goal Tdap. Due on due Goal Pap/HPV testing. Due on due Goal Colonoscopy. Due on due Goal ALT. Due on due Goal TRUCKING MANAGER exam. Due on due Goal Diabetes screening. Due on due Goal H&P. Due on due Goal Depression scree janet. Due on due Goal FOBT. Due on due Goal Lipid Panel. Due on due Goal Influenza Vaccine. Due on due Goal TSH. Due on due Goal Sigmoidoscopy. Due on due Goal Mammogram. Due on 8 due Goal Breast exam. Due on 018 due Goal TD Vaccine. Due on 18 due Goal Pap/HPV testing. Due on due Goal CPK. Due on due Goal TD Vaccine. Due on 09 due Goal Breast exam. Due on 017 due Goal FOBT. Due on due Goal Sigmoidoscopy. Due on due Goal Diabetes screening. Due on due Goal AST. Due on due Goal Tdap. Due on due Goal TRUCKING MANAGER exam. Due on due Goal Colonoscopy. Due on due Goal FOBT. Due on due Goal Breast exam. Due on due Goal Tdap. Due on due Goal Pap/HPV testing. Due on due Goal CPK. Due on due Goal Sigmoidoscopy. Due on due Goal Colonoscopy. Due on 017 due Goal TD Vaccine. Due on 09 due Goal Diabetes screening. Due on due Goal TRUCKING MANAGER exam. Due on due Goal Pneumococcal vaccine due Goal AST. Due on due Goal AST. Due on due Goal Pap/HPV testing. Due on due Goal TD Vaccine. Due on 09 due Goal Colonoscopy. Due on due Goal Tdap. Due on due Goal CPK. Due on due Goal Breast exam. Due on due Goal TRUCKING MANAGER exam. Due on due Goal Sigmoidoscopy. Due on due Goal Diabetes screening. Due on due Goal FOBT. Due on due Goal Tdap. Due on due Goal Breast exam. Due on due Goal AST. Due on due Goal TD Vaccine. Due on due Goal TRUCKING MANAGER exam. Due on due Goal Diabetes screening. Due on due Goal CPK. Due on due Goal Pap/HPV testing. Due on due Goal Tdap. Due on due Goal Diabetes screening. Due on due Goal Breast exam. Due on due Goal AST. Due on due Goal TD Vaccine. Due on due Goal TRUCKING MANAGER exam. Due on due Goal CPK. Due on due Goal Pap/HPV testing. Due on due Goal TD Vaccine. Due on due Goal Tdap. Due on due Goal Pap/HPV testing. Due on due Goal AST. Due on due Goal CPK. Due on due Goal Diabetes screening. Due on A due Goal ALT. Due on due Goal TRUCKING MANAGER exam. Due on due Goal Breast exam. Due on 017 due Goal TRUCKING MANAGER exam. Due on due Goal Breast exam. Due on 016 due Goal Tdap. Due on due Goal TD Vaccine. Due on due Goal H&P. Due on due Goal Diabetes screening. Due on O due Goal AST. Due on due Goal Pap/HPV testing. Due on due Goal CPK. Due on due Goal Breast exam. Due on 016 due Goal CPK. Due on due Goal Pap/HPV testing. Due on due Goal Tdap. Due on due Goal AST. Due on due Goal H&P. Due on due Goal TD Vaccine. Due on 09 due Goal TRUCKING MANAGER exam. Due on due Goal Diabetes screening. Due on due Goal H&P. Due on due Goal Tdap. Due on due Goal TRUCKING MANAGER exam. Due on due Goal Diabetes screening. Due on due Goal Depression scree janet. Due on due Goal CPK. Due on due Goal AST. Due on due Goal Breast exam. Due on due Goal Pap/HPV testing. Due on due Goal TD Vaccine. Due on due Goal AST. Due on due Goal CPK. Due on due Goal TD Vaccine. Due on due Goal Breast exam. Due on due Goal Pap/HPV testing. Due on due Goal TRUCKING MANAGER exam. Due on due Goal Tdap. Due on due Goal Depression scree janet. Due on due Goal Diabetes screening. Due on A due Goal TRUCKING MANAGER exam. Due on due Goal AST. Due on due Goal TD Vaccine. Due on due Goal CPK. Due on due Goal Tdap. Due on due Goal Breast exam. Due on due Goal Depression scree janet. Due on due Goal Pap/HPV testing. Due on due Goal Diabetes screening. Due on A due Goal TRUCKING MANAGER exam. Due on due Goal H&P. Due on due Goal Breast exam. Due on 015 due Goal AST. Due on due Goal TD Vaccine. Due on due Goal CPK. Due on due Goal TRUCKING MANAGER exam. Due on due Goal AST. Due on due Goal Breast exam. Due on due Goal CPK. Due on due Goal TD Vaccine. Due on due Goal H&P. Due on due Goal H&P. Due on due Goal CPK. Due on due Goal ALT. Due on due Goal AST. Due on due Goal TRUCKING MANAGER exam. Due on due Goal Breast exam. Due on due Goal TD Vaccine. Due on due Goal AST. Due on due Goal TD Vaccine. Due on due Goal CPK. Due on due Goal Breast exam. Due on due Goal ALT. Due on due Goal TRUCKING MANAGER exam. Due on due Goal Breast exam. Due on due Goal AST. Due on due Goal CPK. Due on due Goal TD Vaccine. Due on due Goal TRUCKING MANAGER exam. Due on due Goal ALT. Due on due Goal TD Vaccine. Due on due Goal AST. Due on due Goal CPK. Due on due Goal ALT. Due on due Goal TRUCKING MANAGER exam. Due on due Goal Breast exam. Due on due Goal TRUCKING MANAGER exam. Due on due Goal AST. Due on due Goal ALT. Due on due Goal TD Vaccine. Due on due Goal CPK. Due on due Goal Breast exam. Due on due Goal AST. Due on due Goal CPK. Due on due Goal TD Vaccine. Due on due Goal Breast exam. Due on due Goal TRUCKING MANAGER exam. Due on due Goal ALT. Due on due Goal CPK. Due on due Goal TD Vaccine. Due on due Goal TRUCKING MANAGER exam. Due on due Goal Breast exam. Due on due Goal ALT. Due on due Goal AST. Due on due Goal TRUCKING MANAGER exam. Due on due Goal AST. Due on due Goal TD Vaccine. Due on due Goal CPK. Due on due Goal Breast exam. Due on due Goal ALT. Due on due Goal TRUCKING MANAGER exam. Due on due Goal Breast exam. Due on due Goal CPK. Due on due Goal TD Vaccine. Due on due Goal AST. Due on due Goal AST. Due on due Goal Breast exam. Due on due Goal TD Vaccine. Due on due Goal CPK. Due on due Goal PAP. Due on due Goal Colonoscopy. Due on due Goal TRUCKING MANAGER exam. Due on due Goal CPK. Due on due Goal AST. Due on due Goal TD Vaccine. Due on due Goal TRUCKING MANAGER exam. Due on due Goal Colonoscopy. Due on due Goal PAP. Due on due Goal Breast exam. Due on due Goal ALT. Due on due Goal TD Vaccine. Due on due Goal AST. Due on due Goal Breast exam. Due on due Goal Colonoscopy. Due on due Goal TRUCKING MANAGER exam. Due on due Goal CPK. Due on due Goal PAP. Due on due Goal Colonoscopy. Due on due Goal TD Vaccine. Due on due Goal Lipid Panel. Due on 015 due Goal PAP. Due on due Goal CPK. Due on due Goal TRUCKING MANAGER exam. Due on due Goal TSH. Due on due Goal Breast exam. Due on due Goal ALT. Due on due Goal AST. Due on due Goal AST. Due on due Goal CPK. Due on due Goal Breast exam. Due on due Goal TD Vaccine. Due on due Goal Colonoscopy. Due on due Goal PAP. Due on due Goal TRUCKING MANAGER exam. Due on due Goal Influenza Vaccine. Due on due Referral Ordered: ECHO W/DOPPLER, COMPLETE ordered Referral Ordered: Referrals: Dermatology. Location: closest available. Evaluate and treat ordered Referral Referred To: Bertha Jordan Ordered: Referrals: Psychiatry. Bertha Jordan. Location: [place], [place]. Evaluate and treat ordered Referral Ordered: SCR MAMMO BI INCL CAD ordered Referral Ordered: Screeningmammographydigital ordered Referral Ordered: Screeningmammographydigital Bilateral ordered Patient Education Yeast Skin Infection: C are Instructions completed Patient Education Starting a Juan Antonio ght Loss Plan: Care Instructions completed Patient Education Earwax Blockage: Care I nstructions completed Patient Education Hearing Loss: Care Inst ructions completed Patient Education Shortness of Breath: Ca re Instructions completed Patient Education Psoriasis: Care Instruc tions completed Patient Education Hypothyroidism: Care In structions completed Patient Education Hypothyroidism: Care In structions completed Patient Education Earwax Blockage: Care I nstructions completed Patient Education Kidney Disease and High Blood Pressur~ completed Patient Education Cellulitis: Care Instru ctions completed Patient Education Hernia: Care Instructio ns completed Patient Education DASH Diet: After Your V isit completed Patient Education Learning About High Cho lesterol completed Patient Education Influenza (Flu) Vaccine (Inactivated ~ completed Future Order: Lab Order CMP ([id number]), Se nt on: Sent Future Order: Lab Order LIPID.re flex LDL Direct ([id number]), Sent on: Sent Future Order: Lab Order TSH REFL EX FREE T4 ([id number]), Sent on: Sent Future Order: Lab Order VITAMIN D (25) ([id number]), Sent on: Sent Future Order: Lab Order CBC W/ D iff ([id number]), Ordered on: Ordered Future Order: Lab Order CMP ([id number]), Or dered on: Ordered Future Order: Lab Order LIPID PA LI ([id number]), Ordered on: Ordered Future Order: Lab Order TSH ([id number]), Or dered on: Ordered Future Order: Lab Order VITAMIN D (25) ([id number]), Ordered on: Ordered Future Order: Lab Order CBC W/ D iff ([id number]), Ordered on: Ordered Future Order: Lab Order CMP ([id number]), Or dered on: Ordered Future Order: Lab Order LIPID PA LI ([id number]), Ordered on: Ordered Future Order: Lab Order TSH ([id number]), Body Site: Left Antecubital Fossa, Collected on: Ordered Future Order: Lab Order CBC W/ D iff ([id number]), Ordered on: Ordered Future Order: Lab Order CMP ([id number]), Or dered on: Ordered Future Order: Lab Order LIPID PA LI ([id number]), Ordered on: Ordered Future Order: Lab Order TSH ([id number]), Body Site: Left Antecubital Fossa, Collected on: Ordered Future Order: Lab Order CBC ([id number]), Or dered on: Ordered Future Order: Lab Order CMP ([id number]), Or dered on: Ordered Future Order: Lab Order LIPID PA LI ([id number]), Ordered on: Ordered Future Order: Lab Order TSH ([id number]), Or dered on: Ordered Future Order: Lab Order LIPID PA LI ([id number]), Ordered on: Ordered Future Order: Lab Order BMP ([id number]), Or dered on: Ordered Future Order: Lab Order CBC ([id number]), Or dered on: Ordered Future Order: Lab Order TSH ([id number]), Or dered on: Ordered Future Order: Lab Order T4 FREE ([id number]), Body Site: Left Arm, Collected on: Ordered History Of Present Illness Encounter Date Complaint History Of Prese nt Illness 3 MONTH FOLLOW UP YEAST INFECTION Comments: 58-yea r-old female patient presents today with a staff member from her retirement. Staff member reports a red rash under patient's abdominal fold and groin area. She was using Nystatin powder for this in the past but it cleared up and this was discontinued, this will be restarted on a continuous basis. Staff member also reports that patient has watery itchy eyes daily, allergy eye drops will be prescribed. Patient and staff member have no other questions or concerns today. YEAST INFECTION Comments: 58-yea r-old female patient presents today with a staff member from her retirement where she lives. Staff member reports that patient continues to have a red rash under her breasts, the back of her legs, and under her abdominal fold. Patient was seen a few months back and prescribed nystatin powder when the areas under her abdominal fold and breasts were bright red and irritated. Staff member states that this treatment worked for a while but they have noticed that the rash has worsened lately. On assessment there is no rash under the breasts. There is no rash under the abdominal fold, there is left over nystatin powder only. On the back of patient's bilateral lower legs there are a few raised scaly areas. Patient is treated for chronic psoriasis. I discussed with staff member that due to patient's weight and moisture to these areas there will always be some irritation, there is no current rash. Staff will make sure to dry these areas well after showers and use baby powder as needed. Patient's diet has been changed to help promote some weight loss. They will continue her creams for psoriasis to the back of her legs. Staff member also reports some eye crusting in the mornings that seems to have started after her eye doctor gave her some eyedrops for dry eyes. They will trial patient off the eyedrops to see if this helps. I informed staff that as long as the drainage does not continue throughout the day and patient is not bothered by it there is really no need for treatment. It could be allergic in nature. Patient and staff member have no other questions or concerns today. Comments: 58-yea r-old female patient presents today requesting a referral for a hearing test. Patient reports hearing loss in both ears. She has a hearing aide in her right ear only that her mother ordered for her out of a magazine years ago. She has never had a formal hearing test. Both ears were flushed today and patient continues to have difficulty hearing even with her hearing aide in. A referral will be placed for patient to see an [facility] in [place]. Patient is also requesting a written prescription for a walker. Patient reports an unsteady gait even with her cane lately. Patient and staff member have no other questions or concerns today. HEARING ISSUE Comments: 58 yea r old female patient presents today for a 6 month follow up. She is developmentally disabled and she lives in a retirement. Patient states that she is feeling well. Her blood pressure in office today is well controlled. She has been using clobetasol and calcipotriene topically for psoriasis of her arms and she has had a lot of improvement. She was referred to dermatology earlier this year for pigmented spots to the backs of her legs. She states that she has yet to see dermatology, we will look into this. Patient has chronic bilateral lower extremity edema, she refuses to wear compression stockings, tj wraps are applied daily. Her Lasix dose was increased 3 months ago due to increased swelling and an echocardiogram was ordered which was normal. Today her swelling seems to be at baseline. Staff member present today states that she noticed that patient had a bright red rash under her abdominal fold and breasts when she bathed her yesterday. Nystatin powder will be prescribed. Patient and staff have no other questions or concerns today. Patient will return in 3 months when she is due for labs. RASH WEIGHT GAIN/SWELLING Comments: 58 yea r old female patient presents today with report of a 20 lb weight gain over the past 1 month (our records show a 13lb weight gain over the past 2 months). There is also report of increased swelling to her bilateral lower extremities lately. Patient recently moved in to an assisted living home, she is developmentally disabled and a staff member is with her today. Likely, her activity and food intake have both increased. She has a history of chronic lower extremity edema treated with Lasix 20mg daily. She is obese. She has no history of CAD, HTN, or CHF. She does report having to sleep in a recliner at night due to orthopnea. Staff member reports daily LANG for patient. Patient denies any chest pain or PND but she is a very poor historian. She elevates her legs frequently but refuses her compression stockings. Patient will try tj wraps daily to bilateral lower extremities and her Lasix dose will be increased to 30mg daily. An Echo will be ordered to rule out CHF and repeat labs will be completed in 1-2 weeks. Patient and staff member have no further questions or concerns. Comments: 58 yea r old female patient presents today for a 6 month follow up and physical. She is now living in a retirement, the [facility] in [place], [place]. Patient states that she is feeling well. Her blood pressure is elevated today. Patient is developmentally disabled and previously she was living with her mother at home. Her mother took patient's blood pressure at home frequently and it was always reported at <130/90. A staff member from the retirement is present today and she will start checking patient's blood pressure weekly, she will call if it is consistently >140/90. She will also bring patient back to the hospital next week to have her fasting lab work completed and her mammogram completed. Apparently, patient was only showering every 3 days when she was living with her mother due to dry skin concerns. This was never brought up in our visits prior. It does look like patient has some psoriasis, she will be treated with clobetasol and calcipotriene topically. I think it reasonable for patient to start showering daily with this treatment, especially since she has some issues with incontinence daily. The staff member present is cautioned to keep showers short and keep the water temperature luke warm if tolerated. A written prescription for depends is given to staff member as well. Additionally, patient has chronic bilateral lower extremity edema with no pain. When she lived with her mother they were unable to get compression stockings on her but they will start putting these on patient daily. Patient and staff have no other questions or concerns today. PHYSICAL CHECK UP Comments: 57 yea r old female patient presents today for a 6 month follow up. Her recent labs results are discussed including a TSH, CMP, and lipid panel, all results are unremarkable. Patient will be due for a mammogram next month, an order will be sent. Patient has no complaints or concerns today. 6 month f/u (comments) 56 year o ld female patient presents today for a 6 month follow up for hypothyroidism and vitamin D deficiency. She has a history of hypothyroidism currently on Levothyroxine. She denies any s/s of hyper or hypothyroidism. Patient takes Vitamin D daily. Patient has no complaint or concerns today. Patient will have lab work completed today. 6 month f/u PT PRESENTS FOR A 6 MONTH FOLLOW UP. EST CARE (comments) 56 year old female patient presents today to establish care with her mother who cares for her. Previously patient saw CAMI Suarez for primary care. Patient does not receive care from any specialists at this time. A complete medical, surgical, family, and social history were reviewed with mother and documented. Patient has dental and eye exams yearly. Patient is not up to date on preventative screenings and vaccines. Screenings recommended include a colonoscopy, a pap smear, and a mammogram, mother denies the need for these tests besides the mammogram. Vaccinations recommended include COVID booster and a shingles vaccine, mother refuses both for patient at this time. Patient does not use illicit drugs, tobacco, or drink alcohol. Patient denies any issues with mood. Patient wears sunscreen while outdoors. A comprehensive review of systems and exam were also completed today. Patient's current medications were reviewed. Patient has no current complaints today besides increased hearing loss described below. hearing loss (comments) Mother s tates that patient has been complaining of decreased hearing lately. On exam, patient has cerumen impaction bilaterally. Ears were irrigated and patient reports increased hearing afterwards. hearing loss Elevated blood pressure Elevated blood press ure (comments) Patient's blood pressure is elevated today but mother believes this is due to being nervous about seeing a new provider. Mother states that she will check patient's blood pressure at home and call with readings soon. EST CARE negative for covid questions f/u labs (Christina Zhou p resents to the clinic with her mother for lab follow-up. She has some intellectual challenges so her mother presents with her. She has a known PMH of: hypothyroidism, hyperlipidemia, psoriasis, and bi-lateral lower extremity edema. She sees Dr. Morris doormaker for her eyes, this is the only specialist that she sees. She has not been on the hormone pill and has not had a period since approximately April 2021. She states she is taking all of her medications as directed, denies any negative side effects today.Vaccinations - We discussed the associated benefits and risks with not receiving the recommended preventative measures. We also discussed long-term health implications- [id number] - Dually vaccinated, second shot in December 2020Tdap - Interested, we will administer today Colonoscopy - RefusesMammo - 2020 normal according to the patient's motherFinally, her PHQ9 is 0 today, indicating that she is not diagnostic for depression.) labs negative for covid questions BLISTER ON FOOT (Christina ozuna resents to the clinic with her mother Antonietta with complaints of blister of the right big toe. She is mentally challenged and lives with her mother. Her mother is helping to answer HPI questions today. The patient and mother state that the symptoms are blister and redness, denies pain today. There is also no fever. She denies known trauma and has not been wearing any new shoes. Onset - 1 dayLocation - R. Great toeDuration - ConstantCharacteristics - Erythema, swellingAggravating Factors - NoneRelieving Factors - Foot soakTreatments - Epsom soakFinally, her PHQ9 is 2 today, indicating that she is not diagnostic for depression.) NEGATIVE FOR COVID QUESTIONS F/U LABS (Christina ozuna resents with her mother Antonietta Zhou for lab follow-up and a health maintenance visit. The patient has a PMH of: hypertension, hypothyroidism, hyperlipidemia, midline abdominal hernia, mentally handicap, and psoriasis. The is taking all of her medications as directed and denies any negative side effects. Her mother states that she does not see any specialists at the moment. She has had her influenza vaccination in 2019 and both covid19 vaccinations, her last one was on 01-05-2021. Her last Tdap was in 2007, but she would like to waiting until her next follow-up visit in 6 months to get the booster. She has never had a colonoscopy but has had a recent Cologuard which was negative, she did not know the year. The patient and her mother will consider a colonoscopy of future reference. Her last mammogram was on 12-19-2018, and she is interested in us sending an order today to [facility]. Her PHQ9 is today indicating that she is not diagnostic for depression today.) NEGATIVE FOR COVID QUESTIONS LABS negative fro covid questions flu shot negative for covid questions. F/U LABS (comments) Christina aquino presents with her mother, who is her POA, for lab review and chronic disease management. She has a known history of cognitive limitations, hyperlipidemia, hypertension, hypothyroidism, and psoriasis. Patient goes to workshop in [place] twice weekly and tries to remain active. She appears to be in good spirits at the visit today and she denies any complaints. Mother denies any specific concerns today. Regular dental and eye exams. Mother states patient does not want to do colonoscopies, and she will not enforce this.Mammogram due in September. F/U LABS covid questions aske d, negative response received. labs covid questions aske d, negative response received. Follow up Pt here for foll ow up on lab results, pt scored 2 on depression screening, no falls in past year, last eye exam 3 years ago, last flu shot 09/11/2019. Known history of HTN, Obesity, hypothyroidism, mild developmental delay, and hyperlipidemia. Most recent labs discussed. LDL #128-above goal. The goal for lipid control, LDL, HDL and triglyceride explained. Patients BP is in good control. Goal of BP is </140 systolic. Patient was encouraged to check BP at home. Emphasized avoidance of hypotension. Patient denies any medication side effects. Patients weight has been stable. Explained proper diet, exercise and activity. Benefit of weight management discussed. Explained the potential complications of HTN, obesity and hyperlipidemia. Routine eye exam recommended. labs Here for fasting lab draw. flu shot Here for flu vac cine. follow up Pt here for lab follow up. Scored 1 on depression screening. No falls in past year. Flu vaccine 10/14/18. Prevnar 13 on 09/17/17. Known history of HTN, Mildly Developmentally disabled, obesity, hypothyroidism and hyperlipidemia. Most recent labs discussed. LDL #76. The goal for lipid control, LDL, HDL and triglyceride explained. Patients BP is in good control. Goal of BP is </140 systolic. Patient was encouraged to check BP at home. Emphasized avoidance of hypotension. Patient denies any medication side effects. Patients weight has been stable. Explained proper diet, exercise and activity. Benefit of weight management discussed. Explained the potential complications of HTN and hyperlipidemia. Routine eye exam recommended. labs Here for fasting lab draw. nurse note Pt here for lab follow up, scored 2 on depression screening with no problems, states no falls in past year, Had flu vaccine on 10/14/18 at [facility]. lab review Known history of HTN, Hypertriglyceridemia, obesity, hypothyroidism and hyperlipidemia. Most recent labs discussed. LDL #30 The goal for lipid control, LDL, HDL and triglyceride explained. Patients BP is in good control. Goal of BP is <140 systolic. Patient was encouraged to check BP at home. Emphasized avoidance of hypotension. Patient denies any medication side effects. Patients weight has been stable. Explained proper diet, exercise and activity. Benefit of weight management discussed. Explained the potential complications of HTN and hyperlipidemia. Routine eye exam recommended. Diet, exercise and activity stated to be pretty good. Colonoscopy screening recommended. Mammography 2015-. Pap smear-n/a never sexually active. She is not a smoker and rarely consumes alcohol. She wears a seatbelt while in a vehicle. Explained the importance of avoidance of smoking, tobacco use and illicit drug use. Discussed safety at home. Discussed avoidance of accidents and unhealthy habits. Discussed benefit of routine eye exam and dental follow up. Encouraged self breast exams. labs Here for fasting lab draw. fell at work shop The symptoms cheryl garrido 1 day ago. The location is right lower leg. Fell yesterday at workshop, injuring right lower leg, mother states she slept well last night and she has been giving her tylenol. Patient does complain about some bruising and swelling but denies any pain with movement of any kind or with weightbearing. Mother has been applying ice to the area and having her elevating her leg since the injury. Lab follow-up Known history of HTN, Hypothyroidism and obesity and hyperlipidemia. Most recent labs discussed. LDL #117 The goal for lipid control, LDL, HDL and triglyceride explained. Patients BP is in good control. Goal of BP is <//140 systolic. Patient was encouraged to check BP at home. Emphasized avoidance of hypotension. Patient denies any medication side effects. Patients weight has been losing some-9#. Explained proper diet, exercise and activity. Benefit of weight management discussed. Explained the potential complications of HTN and hyperlipidemia. Routine eye exam recommended.Patient has a history of being developmentally delayed and lives at home with her mother who is her janitor caretaker. Her mother is concerned that she may have been recently sexually active and wonders if she is . test at the office was negative and the mother was agreeable to start her on an oral control pill. labs Here for fasting lab draw. Eye problems The severity of the problem is mild. Symptoms located at left conjunctiva. Patient reports no discomfort. Discharge is described as yellow. Denies aggravating factors. Denies relieving factors. Associated symptoms include nasal congestion and sinus issues. Pertinent negatives include blurred vision, conjunctival edema, conjunctival injection, cough, crying/fussiness, decreased appetite, decreased fluid intake, diarrhea, ear pain, eye pain, eye(s) crusted shut in AM, facial edema, fever, headache, itching, lymphadenopathy, malaise, rash around affected eye(s), red/purple color around eye, rhinorrhea, rubbing eye, sore throat, tearing, vision loss or vomiting. lab follow up Pt here to jarrod kim up on lab results. Pt has had flu vaccine and will get prevnar 13 vaccine today. Patient has a history of hypertension, obesity, hyperlipidemia, hypothyroidism and psoriasis. She has been doing well on her current medications and reports no adverse side effects. She is feeling well and has no complaints. refill Would like a ref ill on tobrex, states it helpd well with psorisis on eyes. Prevnar 13 vaccine flu vaccine Here for flu vac cine. labs Here for Lab dra kim. f/u ER Here for ER foll ow up. Pt was seen in [facility] ER 05/07/17for earache, temperature, and swollen face, was put on Amoxicillin. Pt took last of antibiotics today. feeling fine now, no complaints. F/U LABS Here for follow up on lab results. work physical here for work ph ysical. check ears Mother would lik e ears checked, states she says wax is coming out of them. spot on face Has spot on face mother would like looked at labs here for lab dra kim. FLU SHOT Here for flu vac cine. f/u labs Here for follow up on labs. Physical for work Has yearly phy sical form that needs filled out. labs Here for lab dra kim. f/u labs Here to follow u p on lab results and medication refills hyperlipidemia Risk factors inc lude family history of DM, family history of HTN, obesity, poor diet, sedentary life style and thyroid disease. The patient is adhering to medication, follow-up, diet and exercise for their hyperlipidemia. Positive comorbidity factors include thyroid disease. Hyperlipidemia management includes fibrates, improved diet, increased exercise and statins. Pertinent negatives include chest pain, claudication, constant hunger, constipation, diaphoresis, diarrhea, dizziness, dysesthesias, dyspnea, excessive thirst, foot ulcer, frequent infections, heartburn, hematuria, hypoglycemic episodes, impotence/erectile dysfunction, increased fatigue, joint pain, myalgia, nausea, nocturia, palpitations, polydipsia, polyuria, rash, slow healing, transient weakness, vision loss, vomiting, weight gain and weight loss. hypertension It is currently improving. Risk factors include family history HTN, gout or CAD, inactive lifestyle and obesity. The hypertension is exacerbated by nothing. Pertinent negatives include chest pain, claudication, confusion, diaphoresis, dyspnea, epistaxis, fatigue, headache, hematuria, irregular heartbeat/palpitations, nausea, tinnitus, transient weakness, tremor, visual disturbances and vomiting. Thyroid problems The severity of the problem is mild. The problem has improved. Presenting symptoms include weight loss. Presenting symptoms do not include atrial fibrillation, dysphagia, enlarged thyroid, exophthalmus, fatigue, hoarseness, increased perspiration, insomnia, intolerance to cold, intolerance to heat, irregular menses, muscle weakness, nervousness, rapid heart beat, skin and nail changes, tremor, weight gain, hard mass and rapid growth of nodule. Risk factors include age, female and history of hypothyroidism. labs Pt here for lab draw f/u labs Pt here for foll ow up on labs and medication refills hypertension It is currently improving. Risk factors include inactive lifestyle and obesity. There are no associated symptoms. Pertinent negatives include fatigue, headache, hematuria, irregular heartbeat/palpitations, nausea, tinnitus, transient weakness, tremor, visual disturbances and vomiting. hyperlipidemia Risk factors inc lude family history of DM, family history of HTN, obesity, poor diet, sedentary life style and thyroid disease. The patient is adhering to medication, follow-up, diet and exercise for their hyperlipidemia. Positive comorbidity factors include thyroid disease. There are no associated symptoms. Pertinent negatives include chest pain, claudication, constant hunger, constipation, diaphoresis, diarrhea, dizziness, dysesthesias, dyspnea, excessive thirst, foot ulcer, frequent infections, heartburn, hematuria, hypoglycemic episodes, impotence/erectile dysfunction, increased fatigue, joint pain, myalgia, nausea, nocturia, palpitations, polydipsia, polyuria, rash, slow healing, transient weakness, vision loss,'+ vomiting, weight gain and weight loss. labs Pt here for lab work and flu shot chronic conditions Hx of psoriat ic arthritis, hypothyroidism, edema physical hyperlipidemia Risk factors inc lude obesity, poor diet, sedentary life style and thyroid disease. The patient is adhering to medication and follow-up for their hyperlipidemia. The patient is not adhering to diet and exercise for their hyperlipidemia. Positive comorbidity factors include thyroid disease. Associated symptoms include joint pain. Pertinent negatives include increased fatigue, myalgia, nausea, palpitations, polydipsia, polyuria, rash, slow healing, transient weakness, vision loss,'+ vomiting, weight gain and weight loss. f/u on leg redness ,swellin g , and drainage has stopped 3 days ago to left lower leg. Cont on antibiotics. denies any other complaints redness to leg The symptoms beg an 4 days ago. The symptoms are reported as being moderate. The symptoms occur daily. drainage to area left lower back of leg , with redness that began yesterday. f/u on Echo pt. is h ere for f/up from recent visit. pt. is doing better.no new complaints are reported f/u was put on Lasix 20 daily last visit. Thinks swelling is improving. swelling The swelling occ urred month ago The severity is moderate and remained unchanged. and is constant. The patient denies any history of trauma. The patient does not have erythema or pain. Previous diagnostic studies and/or treatments that have been performed/administered include. Previous diagnostic studies and/or treatments that have not been performed/administered include an ECG. The patient denies any aggravating factors. Interventions the patient has tried have not provided any relief. The patient denies any chest pain, dyspnea or generalized weakness. cont with swelling to lower legs , mother thinks med needs increased. rash under breast patient has ra sh under breast. mother states that pt. developed rash after getting her flu shot last week. mother states pt. has never had a reaction to flu injection but is wondering if that could be the cause of rash. Follow up on lab test(s) patient here to follow up on lab tests labs Rash The patient pres ents for Rash. This episode began 1 month ago. The symptom(s) are described as moderate and worse. Affected area(s) include left leg. The patient's mother describes the affected area(s) as oozing, red and swollen. The symptoms are not associated with contact with chemicals, contact with plants, new perfume, new skin soaps/lotions, rash began before age 4, recent medicines, recent travel and stress. Denies aggravating factors. The symptoms improve with triple antibiotics. Associated symptoms include erythema (skin). Pertinent negatives include bleeding, cracking, crusting, dry skin, edema, hypopigmentation and painful rash. Relevant history positive for family history of allergies, family history of asthma, family history of dermatitis and history of atopic dermatitis. Relevant history negative for history of allergies and history of asthma. f/u cont on antibiot ic feeling better lt. leg still red and swollen. No fever. Dark urine The symptoms beg an 4 days ago. Pt's mother states Wednesday she noted pt's urine to dark, with odor, but today there is no odor and is poultry hanger in color pt voiced no c/o burning. Skin problem The symptoms beg an 4 days ago. Mother states pt has psoriasis, and arthritis. States pt usually has to have and antibiotic for her skin. Noted Lt lower leg to be red, area cool to touch. flu-like symptoms The symptoms b hema . The symptoms have improved. The patient denies any presenting symptoms. She denies a history of sick contacts. The patient denies any aggravating factors. Interventions that have been tried have not provided any relief. Additional information: Pts mother states Wednesday afternoon pt started having chills, 101 feverNo n/v or diarrhea. No sx noted today. follow up on lab test(s) needs p hysical exam for work labs flu shot Functional Status Date Functional Assessmen t No Information Instructions Date Instruction Additional Infor edmond Fill new prescriptio ns and take as directed. Shower daily and dry skin well. Observe for worsening signs and symptoms and seek care as needed. Related to Acute atopic conjunctivitis, unspecified eye Stop eyedrops. Stop nystatin powder and try baby powder as needed after areas are dried well. Observe for worsening signs and symptoms and seek care as needed. Work on diet and exercise for weight loss. Related to Allergic conjunctivitis, bilateral Use walker daily to decrease and prevent falls. Continue all daily medications. Follow-up with Dr. Simental, [employer] for your hearing test when scheduled. Observe for worsening signs and symptoms and seek care as needed. Related to Conductive hearing loss, bilateral Start using nystatin powder as directed. Continue all other home medications as directed. Continue compression stockings daily. Work on diet and exercise for weight loss. Have lab work completed a few days prior to your next follow-up. See dermatology when scheduled. Related to Unsteady gait Apply Tj wraps guillermo y to bilateral lower extremities and elevate legs as often as possible. Increase Lasix dose from 20 mg daily to 30 mg daily. Have repeat lab work and echo completed in 1 to 2 weeks. Observe for worsening signs and symptoms and seek care as needed. Related to LANG (dyspnea on exertion) Fill new prescriptio ns and take as directed. Continue all other home medications. Start checking blood pressure weekly and call if >140/90 consistently. Wear compression stockings daily. Have lab work and mammogram completed next week. Observe for worsening signs and symptoms and seek care as needed. Related to Psoriasis Continue taking all prescribed medications. Observe for worsening signs and symptoms and seek care as needed. Have labs drawn a few days before your next follow up. Have your mammogram completed next month. Related to Edema, unspecified Continue taking your vitamin D supplement as directed. We will recheck you labs to make sure your vitamin D level is normal with supplementation and adjust your supplement as needed. Related to Vitamin D deficiency, unspecified Continue taking your thyroid replacement as directed. Observe for worsening signs and symptoms of hypothyroidism and contact the office if needed. Related to Hypothyroidism, unspecified Patient was educated that yearly mammograms are used to screen for breast cancer starting at the age of 40. Patient was educated that this screening is very important because breast cancer can commonly be asymptomatic so early detection provides the availability for early treatment and better outcomes. Patient was also educated that breast cancer is the most common cancer in women. Related to Encounter for screening mammogram for malignant neoplasm of breast Continue wearing hea ring aides as directed. Observe for worsening in hearing any seek care as needed. Related to Conductive hearing loss, bilateral Continue to monitor for worsening signs and symptoms and seek care as needed. Related to Ventral hernia without obstruction or gangrene Don't use Q-tips. Ma y use debrox as needed. Have ears flushed in office if needed. Related to Impacted cerumen, bilateral Continue to use mois turizers daily. Avoid picking at the areas to avoid infection. Observe for worsening signs and symptoms and seek care as needed. Related to Other psoriasis Consequences of poor ly controlled blood pressure explained to patient. Patient is instructed to take home blood pressure readings and bring them in to the next appointment. Observe for worsening signs and symptoms and seek care as needed. Related to Elevated blood pressure reading Continue taking your thyroid replacement as directed. Observe for worsening signs and symptoms of hypothyroidism and contact the office if needed. Related to Hypothyroidism, unspecified Recommendations for arthritic pain relief are low impact non weight bearing exercise such as swimming or using a stationary bike to strengthen your muscles, taking the load off your joints. Daily exercise helps the pain but too much exercise/overuse of the joints, such as gardening all day long can increase pain and swelling in the joints. Related to Unspecified osteoarthritis, unspecified site Continue wearing com pression stockings during the day and elevating your feet above the level of your heart as much as possible. Try not to be on your feet for long periods of time. Take your medications as prescribed to help decrease your edema. Observe for worsening signs and symptoms and seek care as needed. Related to Edema, unspecified Discussed weight los s goal, 5-10% of current weight. Benefit of weight loss to general health discussed. Encouraged to maintain a healthy balanced diet and a regular cardiovascular exercise program. Related to Obesity, unspecified It is recommended to have preventative screenings and vaccines when needed as well as yearly dental and eye exams. Patient advised to avoid illicit drugs, tobacco, and alcohol use. Patient is encouraged to eat a healthy diet, exercise at least three times per week, and wear sunscreen while outdoors. Patient should fill any prescribed medications and take as directed and observe for medication side effects. Patient should also have lab work and imaging done in a timely manner if ordered. Patient is to return for scheduled routine appointments as directed and if any problems arise. Related to Encounter to establish care Patient counseled re garding potential comorbidities of hyperlipidemia including heart attack and stroke. Medication compliance as well as follow up appointments encouraged. Advised to observe for medication side effects. The importance of proper diet, weight management, and exercise were discussed as well. Related to Mixed hyperlipidemia Routine colonoscopie s are recommended beginning at the age of 45. Colonoscopies are important in the prevention of colon cancer and detection of precancerous polyps. Related to Recommendation refused by patient Obesity increases yo ur risk of: all-causes of (mortality), high blood pressure (hypertension), high LDL cholesterol, low HDL cholesterol, or high levels of triglycerides (Dyslipidemia), Type 2 diabetes mellitus, coronary heart disease, stroke, and worsening osteoarthritis. Related to BMI 45.0-49.9, adult Take medication as p rescribed. Take all of the medication until it is gone, even if you feel better. Follow up with your primary care provider if unimproved. Drink plenty of fluids especially water, wipe front to back, avoid douching, empty the bladder before and immediately following sexual intercourse, and avoid tight fitting clothing. Avoid irritants such as scented feminine products, scented pads or tampons, and scented bath soaps. Related to Urinary tract infection with hematuria, site unspecified Take all medications as directed. You should limit both total fat and saturated fat. Limit foods with cholesterol. Eat plenty of soluble fiber. Eat lots of fruits and vegetables. Eat fish that are high in omega-3 fatty acids. Limit salt. Limit alcohol. Follow a carbohydrate controlled diet and reduce processed sugar intake. Related to Mixed hyperlipidemia Monitor for worsenin g signs and symptoms, report them as necessary. Related to Psoriasis, unspecified Take all medications as directed. Practice a low sodium diet, as this can contribute to edema of the lower extremities. Elevate the legs and wear compression socks while ambulating or sitting with your feet in a dangling position. Monitor for worsening signs and symptoms, report them as necessary. Related to Lower extremity edema Take all medications as directed. Monitor for worsening signs and symptoms, report them as necessary. Signs or symptoms associated with too high of a dose of levothyroxine include: Elevated pulse and blood pressure, anxiety, nervous energy, tremors. feeling irritable, overemotional, erratic, or depressed. Difficulty concentrating, difficulty sleeping, fatigue, feeling overheated, and diarrhea. Related to Hypothyroidism, unspecified Keep site clean and dry. Monitor for any new/worsening symptoms and return to the clinic if these occur. Worsening of symptoms includes: increased redness, swelling, pain, fever, or purulent drainage. Take all of the medications as prescribed, even if feeling better. Follow-up in office for a wound check after finishing antibiotics or sooner if there is no improvement after 2-3 days. Related to Cellulitis of toe of right foot Monitor for worsenin g signs and symptoms, report them as necessary. These symptoms of bowel strangulation may include the following: abdominal pain and tenderness, constipation, fever. discoloration of the bulge, or vomiting. Related to Abdominal hernia without obstruction and without gangrene, recurrence not specified, unspecified hernia type Studies have shown t hat individuals with low Vitamin D levels, are more likely to develop upper respiratory tract infections, and have less optimal health outcomes than those with sufficient levels. Related to Vitamin D deficiency Practice a low sodiu m diet, as this can contribute to edema of the lower extremities. Elevate the legs and wear compression socks while ambulating or sitting with your feet in a dangling position. Monitor for worsening signs and symptoms, report them as necessary. Related to Lower extremity edema Consume a carbohydra te controlled diet with emphasis on avoiding sugar-sweetened beverages and added sweeteners. Spread carbohydrate intake consistently throughout the day. Always pair carbohydrate-rich foods with a source of protein. Related to Obesity, unspecified Monitor for worsenin g signs and symptoms, report them as necessary. Related to Psoriasis, unspecified Take all medications as directed. Monitor for worsening signs and symptoms, report them as necessary. Signs or symptoms associated with too high of a dose of levothyroxine can include: Elevated pulse and blood pressure, anxiety, nervous energy, tremors. feeling irritable, overemotional, erratic, or depressed. Difficulty concentrating, difficulty sleeping, fatigue, feeling overheated, and diarrhea. Related to Hypothyroidism, unspecified You should limit bot h total fat and saturated fat. Limit foods with cholesterol. Eat plenty of soluble fiber. Eat lots of fruits and vegetables. Eat fish that are high in omega-3 fatty acids. Limit salt. Limit alcohol. Follow a carbohydrate controlled diet, reduce processed sugar intake, and moderate to intense exercise for 30 minutes a day most days of the week. Related to Hyperlipidemia, unspecified Patient is to stop f enofibrate and start rosuvastatin, follow-up labs in 6 months. Related to Hyperlipidemia, unspecified Follow a low sodium diet. Relate d to HTN Increase activity. Related to Hy pertriglyceridemia Increase activity. Related to HT N Follow a low Saturat ed fat, low sugar diet. Related to Hypertriglyceridemia Take medicine daily on empty stomach, follow-up in 6 months Related to Hypothyroidism, unspecified Increase activity. Related to Hy perlipidemia, unspecified Follow a low Saturated fat diet. Related to Hyperlipidemia, unspecified Increase activity. Related to Mi xed hyperlipidemia Follow a low Saturated fat diet. Related to Mixed hyperlipidemia Increase activity. Related to HT N Follow a low sodium diet. Relate d to HTN Take med on an empty stomach, f/u labs in 6mos. Related to Hypothyroidism, unspecified Avoid foods high in calorie. Increase fluids. Related to Obesity, unspecified Improve diet and exe rcise, activity Related to Obesity, unspecified Benefit of proper we ight management discussed at length Related to Obesity, unspecified Patient is to return FOBT cards when completed. Related to Encounter for screening for cancer of colon Increase activity. Related to HT N Follow a low sodium diet. Relate d to HTN Increase activity. Related to Hy perlipidemia, unspecified Follow a low Saturated fat diet. Related to Hyperlipidemia, unspecified Take medication guillermo y on empty stomach follow-up labs in 6 months Related to Hypothyroidism, unspecified Avoid foods high in calorie. Increase fluids. Related to Obesity, unspecified Improve diet and exe rcise, activity Related to Obesity, unspecified Benefit of proper we ight management discussed at length Related to Obesity, unspecified Rest ice compression and elevati on Related to Injury of right knee, initial encounter Continue medication on an empty stomach daily Related to Hypothyroidism, unspecified Avoid foods high in calorie. Increase fluids. Related to Obesity, unspecified Improve diet and exe rcise, activity Related to Obesity, unspecified Benefit of proper we ight management discussed at length Related to Obesity, unspecified Reversible methods o f contraception discussed with patient. Related to Encounter for other general advice on contraception Increase activity. Related to HT N Follow a low sodium diet. Relate d to HTN Increase activity. Related to Hy perlipidemia, unspecified Follow a low Saturated fat diet. Related to Hyperlipidemia, unspecified Increase physical activity. Rela giuliano to Encounter for other general advice on contraception Antibiotic eyedrops 4 times daily 7 days, RTC if worse/no better. Related to Conjunctivitis Benefit of weight loss discussed Related to Obesity, unspecified Skin care instructio ns discussed, RTC if worse, no better. Related to Psoriasis, unspecified Increase activity. Related to HT N Follow a low sodium diet. Relate d to HTN Increase activity. Related to Hy perlipidemia, unspecified Follow a low saturated fat diet. Related to Hyperlipidemia, unspecified Cont. meds at same d [place], recheck labs in 6mos. Related to Hypothyroidism, unspecified Avoid foods high in calorie. Increase fluids. Related to Obesity, unspecified Improve diet and exe rcise, activity Related to Obesity, unspecified RTC prn if any s/s r eoccur, otherwise at next routine visit. Related to Follow-up visit after completion of treatment Cont. wt loss plan Related to En counter for general adult medical examination without abnormal findings Increase activity. Related to En counter for general adult medical examination without abnormal findings Increase activity. Related to Hy perlipidemia, unspecified Increase Lopid to bi d, f/u in 3mos. Related to Hyperlipidemia, unspecified Follow a low saturated fat diet. Related to Hyperlipidemia, unspecified Cont. meds at same d [place] as TSH normal range. Related to Hypothyroidism, unspecified Increase activity. Related to HT N Follow a low sodium diet. Relate d to HTN Cont. same dose, sarah e 1/2 to 1 hr before meals, increase exercise. Related to Hypothyroidism, unspecified Increase activity. Related to HT N Follow a low sodium diet. Relate d to HTN Cont. same meds at s raina dosage, good control Related to HTN Increase activity. Related to Hy perlipidemia, unspecified Follow a low saturated fat diet. Related to Hyperlipidemia, unspecified Cont. same meds and home light therapy prn. Increase Wrens 3 in diet. Related to Psoriasis, unspecified Increase activity. Related to Hy perlipidemia, unspecified Follow a low sodium diet. Relate d to Hyperlipidemia, unspecified Cont. same dosage of levothyroxine on empty stomach, labs in 6 mos Related to Hypothyroidism, unspecified Cont same med regime n, recheck TSH in 08/15, dietary ed discussed Related to Hypothyroidism Exercise, wt loss en couraged, DASH diet plan discussed, given Related to Obesity Increase activity. Related to Ot her and unspecified hyperlipidemia Follow a low sodium diet. Relate d to Other and unspecified hyperlipidemia Cont. same med and p hototherapy regimen per derm suggestions Related to Psoriasis Perform monthly self breast examinations. Related to Routine Medical Exam Increase activity. Related to Ro utine Medical Exam finish antibiotic course Related to Cellulitis good hygienic measures advised R elated to Cellulitis keflex 500mg po tid Related to C ellulitis wound care instructions Related to Cellulitis apply warm soaks qid Related to Cellulitis continue lasix 20mg qd Related t o Lower extremity edema results of echo d/w pt. and her mother Related to Lower extremity edema discussed lifestyle changes, diet and exercise Related to Lower extremity edema reviewed medications in detail R elated to Lower extremity edema reviewed cxr results .awaiting echo scheduled 11/09 Related to Lower extremity edema continue same rx. Related to Low er extremity edema elevate extremity Related to Low er extremity edema lasix 20mg daily Related to Lowe r extremity edema reviewed labs, renew meds, f/u in one year for repeat labs Related to Hypothyroidism nystatin cream under breast, keep area clean and dry, rtc as needed Related to Skin yeast infection bactrim antibiotic f or 10 days, keep areas covered while draining Related to Cellulitis change bandage 2-3 t imes per day as needed, wash areas soap and water Related to Cellulitis keep legs elevated a s much as possible, rtc if no improvement Related to Cellulitis will continue same t reatment for now Related to Cellulitis keflex and life style changes Re lated to Cellulitis physical exam WNL fo r patient for work purposes Related to Routine Medical Exam return as needed Related to Rout ine Medical Exam reviewed labs with pt and mother Related to Routine Medical Exam Renew medications Prescribe medications Renew medications Review medications Review medication side effects Call if symptoms persist Assessments Type Assessment Date No Information Patient Care Teams Name Effective Dates (start - stop) Status Members No Information
== END 2025-02-20 13:18 | disposition home or self-care (01) ==
LOC: ANHBWCAUD 13:18
DX: H90.3 Sensorineural hearing loss, bilateral (principal)
CPT/HCPCS: 92553; 92555; 92567